=== PATIENT | female | born 1970 | race Caucasian/White ===

== ENCOUNTER 2018-12-17 14:30 | Outpatient (RCR) | payer OTHER, SELFPAY ==
--- NOTE | 2019-01-06 15:02 | PCPTNOTE ---
01/06/19 pt did not show for apt. Contacted patient and she is having a bad day and sadi for 1x next week. VETO
== END 2019-01-20 23:59 | disposition home or self-care (01) ==
LOC: CHSPT 14:30
PROVIDERS: Visit Provider Internal Medicine
DX: M25.561 Pain in right knee (principal); R26.9 Unspecified abnormalities of gait and mobility
CPT/HCPCS: 97014; 97110; 97530; G0283

== ENCOUNTER 2019-06-06 10:45 | Outpatient (CLI) | payer OTHER, SELFPAY ==
--- NOTE | ~2019-06-06 | MR_ITS ---
EXAMINATION: MR brain/brain stem wo/w con DATE: 06/06/2019 12:28 INDICATION: Seizures. TECHNIQUE: Magnetic resonance imaging (MRI) of the brain and brainstem was performed without and with 10 mL MultiHance intravenous contrast. Sequences included sagittal and axial T1-weighted FSE, axial diffusion-weighted FS EPI, axial T2*-weighted GRE, axial T2-weighted FLAIR Propeller, axial T2-weight ed Propeller, coronal T2-weighted FLAIR, and coronal T1-weighted 3D FSPGR. Postcontrast axial and cor onal T1-weighted FSE was obtained. Apparent diffusion coefficient (ADC) maps were created. COMPARISON: None. FINDINGS: There is no intracranial hemorrhage, acute infarction, or abnormal intracranial mass lesion . There is a small focus of increased T2-weighted signal intensity in the right frontal lobe deep whi te matter, which is normal as an isolated finding. The hippocampi are normal and symmetric. The ventr icles are normal in size. The orbits are normal. There is mild mucosal thickening in the ethmoid sinu ses. The mastoid air cells are normal. IMPRESSION: 1. Normal brain. Reviewed, dictated and finalized at location A. IMPRESSION: 1. Normal brain.
[2019-06-06 11:19] LABS: Estimated Glomerular Filt Rate > 60
== END 2019-06-06 10:46 | disposition home or self-care (01) ==
LOC: CHSIMG 10:48
PROVIDERS: PCP Internal Medicine; Visit Provider Internal Medicine
DX: R56.9 Unspecified convulsions (principal)
CPT/HCPCS: 70553; A9577

== ENCOUNTER 2019-06-18 13:04 | Outpatient (CLI) | payer OTHER, SELFPAY ==
--- NOTE | 2019-06-18 13:30 | NEURO_ITS ---
TEST: ELECTROENCEPHALOGRAM DIAGNOSIS: Seizures PATIENT NUMBER: [id number] EEG NUMBER: [id number] RECORDING DATE: 06/18/19 CONDITION OF RECORDING: Awake and drowsy EEG DESCRIPTION: Basic resting occipital frequency consists of moderate amount of fairly well organized low voltage 8-10hz alpha mixed with low voltage 15-18hz beta. During drowsiness low voltage beta activity is seen diffusely mixed with waxing and waning posterior alpha rhythms and intermittent 6-7hz theta activity. Photic stimulation produced normal drive. Nonparoxysmal. Nonfocal. Nonlateralizing. IMPRESSION: No significant abnormalities noted. [facility]
== END 2019-06-18 13:05 | disposition home or self-care (01) ==
LOC: ANHNEURO 13:08
DX: R56.9 Unspecified convulsions (principal)
CPT/HCPCS: 95816

== ENCOUNTER 2021-02-06 15:13 | Outpatient (NON) | payer OTHER, SELFPAY | END 2021-02-06 15:14 | disposition home or self-care (01) | LOC: CHSLAB 15:15 | DX: R60.9 Edema, unspecified (principal) | CPT/HCPCS: 99199 ==

== ENCOUNTER 2021-02-07 12:10 | Outpatient (CLI) | payer OTHER, SELFPAY ==
--- NOTE | ~2021-02-07 | US_ITS ---
EXAMINATION: US venous doppler LE DATE: 02/07/2021 13:22 INDICATION: Lower limb swelling. Nonhealing wound. TECHNIQUE: Grayscale ultrasound images without and with compression and Doppler ultrasound images of the bilateral lower extremity veins were obtained. COMPARISON: None. FINDINGS: Right lower extremity: The visualized portions of right common femoral vein, profunda (deep) femoral vein, femoral vein, pop liteal vein, posterior tibial veins, peroneal veins, gastrocnemius vein and greater saphenous vein ou tflow are patent. Right standing venous mapping: reflux seconds duration; vein size. Greater saphenous origin: 0 seconds; 8.2 mm. Greater saphenous above knee :-- 0 seconds; 4.5 mm. Greater saphenous below knee:--- 0 seconds; 3.1 mm. Greater saphenous mid calf:-------- 0 seconds; 2.3 mm. Greater saphenous distal calf:------ 0 seconds; 1.9 mm. Lesser saphenous proximally:------ 0 seconds; 3.6 mm. Lesser saphenous distally: 0 seconds; 3.1 mm. Lesser saphenous distally: 0 seconds; 2.3 mm. Left lower extremity: The visualized portions of left common femoral vein, profunda femoral vein, femoral vein, popliteal v ein, posterior tibial veins and greater saphenous vein outflow are patent. Left standing venous mapping: reflux seconds duration; vein size. Greater saphenous origin: 0 seconds; 8.0 mm. Greater saphenous mid thigh:------ 0 seconds; 6.0 mm. Greater saphenous above knee :--0 seconds; 3.7 mm. Greater saphenous below knee:--- 0 seconds; 3.4 mm. Greater saphenous mid calf:-------- 0 seconds; 4.0 mm. Greater saphenous distal calf:------ 0 seconds; 2.7 mm. Lesser saphenous vein is not visualized. IMPRESSION: 1. No deep venous thrombosis in either lower limb. 2. No venous reflux in either lower limb. Reviewed, dictated and finalized at location A. UCTION QUALITY MANAGER
--- NOTE | ~2021-02-07 | US_ITS ---
EXAMINATION: US arterial ankle brachial ind DATE: 02/07/2021 13:22 INDICATION: Lower limb edema and nonhealing wound TECHNIQUE: Segmental pressures and plethysmographic and Doppler waveforms of the brachial and lower e xtremity arteries were obtained. COMPARISON: 07/31/2018 FINDINGS: Right and left brachial artery pressures of 115 mm Hg and 133 mm Hg, respectively, are concordant (no rmal difference <= 30 mmHg). The right ankle-brachial index (BULMARO) is 1.32 (normal >= 0.9-1.0). The right great toe-brachial index (TBI) is 0.77 (normal >= 0.65). Arterial Doppler waveforms are triphasic at the right posterior tibia l artery and biphasic at the dorsalis pedis artery, both with brisk systolic upstrokes. The left BULMARO is 1.39. The left TBI is 0.56. Arterial Doppler waveforms are triphasic at the left post erior tibial artery and biphasic at the left dorsalis pedis artery, both with brisk systolic upstroke s. IMPRESSION: 1. 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 2. No significant arterial occlusive disease to the right lower limb with normal right BULMARO and TBI. Reviewed, dictated and finalized at location A. F LABOURER IMPRESSION: 1. 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 2. No significant arterial occlusive disease to the right lower limb with mandeep l right BULMARO and TBI.
== END 2021-02-07 12:11 | disposition home or self-care (01) ==
LOC: CHSIMG 12:12
PROVIDERS: PCP Nurse Practitioner Family
DX: R60.0 Localized edema (principal)
CPT/HCPCS: 93922; 93970

== ENCOUNTER 2021-02-15 12:11 | Outpatient (CLI) | payer OTHER, SELFPAY ==
--- NOTE | ~2021-02-15 | XR_ITS ---
XR lumbar spine 2-3V DATE: 02/15/2021 12:31 INDICATION: Lower back pain TECHNIQUE: AP, lateral and coned lateral lumbosacral views COMPARISON: 11/23/2013 lumbar spine 11/25/2013 MRI lumbar spine FINDINGS: There is osteopenia. There is mild dextro scoliosis of the lumbar spine. There is degenerative spurring of the thoracic and particularly lumbar spine. There is ankylosis at L5-S1. Moderately severe degenerative disc disease at L1-2, L3-4 and L4-5. Mild degenerative disease at L2-3 . No fracture or spondylolisthesis or bone destruction. The lumbar pedicles are intact. The sacral iliac joints appear normal. Severe deformity at the partially included left hip. IMPRESSION: Fusion at L5-S1 disc space Multilevel degenerative disc disease of the lumbar spine Osteopenia Mild dextro scoliosis of the lumbar spine Severe deformity at the left hip Reviewed, dictated and finalized at location A. TH SAFETY SPECIALIST
== END 2021-02-15 12:12 | disposition home or self-care (01) ==
LOC: CHSIMG 12:11
PROVIDERS: PCP Nurse Practitioner Family; Visit Provider Nurse Practitioner Adult Health
DX: M54.16 Radiculopathy, lumbar region (principal)
CPT/HCPCS: 72100

== ENCOUNTER 2021-02-20 12:46 | Outpatient (RCR) | payer OTHER, SELFPAY ==
--- NOTE | 2021-02-20 14:04 | PTOPEVAL ---
Thank you for referring Gricel Reddy to [facility].? The patient is scheduled to be seen for therapy? ____x/week for ___ weeks. Please review, sign, date and return this plan of care CAPO. I agree with and certify that the following plan of care is medically necessary. Referring Physician Date Admitting Provider: Attending Provider: Kaylene Brown, JEWELRY DESIGNER Referring Provider: *PT Outpatient Evaluation Start: 02/20/21 12:55 Freq: Status: Active Protocol: Document 02/20/21 13:01 ACR (Rec: 02/20/21 14:03 ACR [id number]) Therapy Assessment Status Assessment Status Assessment Status Evaluation Evaluation Information Problem Diagnosis lumbar radiculopathy Onset 02/15/21 Subjective Information Patient states that she has Query Text:As Reported By Patient/ chronic back pain and deals Family with it everyday. Patient states that her sleep is affected due to the pain. Patient states that everyday tasks are difficult for her such as transfers, doing dishes, or any other mineral engineer. Patient denies radicular symptoms. Patient lives alone and has a computer graphic artist comes in for 14 hours a week. Patient states that she walks around her home with a standard walker and reports no difficulty. Prior Level of Function Activity Level (Last 3 Months) Occupation uneployed Hand Dominance Right Activity of Daily Living Ability Needs Some Help Indoor/Home Mobility Independent Community Mobility Dependent Stairs Ability Unknown Functional Cognition (Planning, Shopping Independent , Taking Medications) Cooking No Cleaning Yes Laundry No Shopping No Driving No Pain Assessment Timing of Pain Assessment Timing of Pain Assessment Assessment Pain Scale Pain Scale Used Numeric (1 - 10) Self Report Pain Assessment Right Back Reported Pain Level 7 Greatest Pain Intensity 8 Pain Score Pain Score 7: Self Report Additional Pain Score Comments I can't describe it, it is just a pain. Interventions Used Interventions Used By Clinicians Activity or ADL's,Exercise Lower Extremity Muscle Strength Testing
--- NOTE | 2021-06-15 14:19 | PCPTNOTE ---
patient has began a new plan of care under a new account and order. JTF
== END 2021-03-09 23:59 | disposition home or self-care (01) ==
LOC: CHSPT 12:46
PROVIDERS: PCP Nurse Practitioner Adult Health; Visit Provider Nurse Practitioner Adult Health
DX: M54.16 Radiculopathy, lumbar region (principal)
CPT/HCPCS: 97014; 97110; 97161; G0283

== ENCOUNTER 2021-03-06 10:25 | Outpatient (RCR) | payer OTHER, SELFPAY | END 2021-03-08 23:59 | disposition home or self-care (01) | LOC: CHSWOUND 10:25 | PROVIDERS: PCP Nurse Practitioner Family | DX: L97.222 Non-pressure chronic ulcer of left calf with fat layer exposed (principal); I89.0 Lymphedema, not elsewhere classified; I10 Essential (primary) hypertension; G62.9 Polyneuropathy, unspecified; D64.9 Anemia, unspecified; E78.00 Pure hypercholesterolemia, unspecified; E03.9 Hypothyroidism, unspecified; E78.5 Hyperlipidemia, unspecified; B37.2 Candidiasis of skin and nail; F17.210 Nicotine dependence, cigarettes, uncomplicated; G47.30 Sleep apnea, unspecified; Z96.649 Presence of unspecified artificial hip joint | CPT/HCPCS: 11042; 11045; 87070; 87147; 87186; 87205; 97597; 97598; 97602; 99205; 99214; G0463 ==

== ENCOUNTER 2021-04-10 09:33 | Outpatient (RCR) | payer OTHER, SELFPAY | END 2021-04-12 23:59 | disposition home or self-care (01) | LOC: CHSWOUND 09:33 | PROVIDERS: PCP Nurse Practitioner Adult Health; Visit Provider Nurse Practitioner Family | DX: L97.222 Non-pressure chronic ulcer of left calf with fat layer exposed (principal); I89.0 Lymphedema, not elsewhere classified; I10 Essential (primary) hypertension; D64.9 Anemia, unspecified; E66.9 Obesity, unspecified; E78.00 Pure hypercholesterolemia, unspecified; E03.9 Hypothyroidism, unspecified; G90.09 Other idiopathic peripheral autonomic neuropathy; B37.2 Candidiasis of skin and nail | CPT/HCPCS: 11042; 11045; 99213; G0463 ==

== ENCOUNTER 2021-05-15 09:58 | Outpatient (RCR) | payer OTHER, SELFPAY | END 2021-05-17 23:59 | disposition home or self-care (01) | LOC: CHSWOUND 09:58 | PROVIDERS: PCP Nurse Practitioner Family; Visit Provider Nurse Practitioner Family | DX: L97.222 Non-pressure chronic ulcer of left calf with fat layer exposed (principal); I89.0 Lymphedema, not elsewhere classified; I10 Essential (primary) hypertension; G90.09 Other idiopathic peripheral autonomic neuropathy; D64.9 Anemia, unspecified; E78.00 Pure hypercholesterolemia, unspecified; E03.9 Hypothyroidism, unspecified; B37.2 Candidiasis of skin and nail | CPT/HCPCS: 11042; 11045; 29580; 87070; 87147; 87186; 87205; 99213; G0463 ==

== ENCOUNTER 2021-05-21 17:14 | Emergency (ER) | payer OTHER, SELFPAY ==
--- NOTE | ~2021-05-21 | CT_ITS ---
EXAMINATION: CT lumbar spine wo con DATE: 05/21/2021 18:32 INDICATION: Low back pain and pressure for several days. History of spinal surgery. TECHNIQUE: Computed tomography (CT) of the thoracic spine was performed without intravenous contrast. Automated exposure control and iterative reconstruction technique were employed. The dose-length pro duct was 1592.63 mGy-cm. COMPARISON: None FINDINGS: 5 nonrib-bearing lumbar-type vertebral bodies. L5-S1 interbody and facet fusion. Postsurgical change in the left iliac bone, extending into the left iliacus psoas muscles. Severe right neural foraminal narrowing at L5-S1. Multilevel moderate degenerative disc disease and facet arthropathy in the remain evelin of the lumbar spine. No fracture or traumatic malalignment of the lumbar spine. No severe central canal or neural foraminal narrowing. IMPRESSION: 1. No acute fracture or traumatic malalignment in the lumbar spine. Reviewed, dictated and finalized at location K.
[2021-05-21 17:15] VITALS: BP 120/58; PULSE 100; RESP 16; TEMP 36.4; O2SAT 97
--- NOTE | 2021-05-21 17:29 | ED.BACK ---
HPI - Back Pain/Injury General Chief Complaint: Back Pain/Injury Stated Complaint: back pain, leg edema Time Seen by Provider: 05/21/21 17:31 Source: patient, EMS and RN notes reviewed Mode of arrival: EMS Limitations: physical limitation History of Present Illness MD elicited complaint: back pain Pertinent past history: prior back pain Onset (ago): day(s) (1) Timing: constant Severity: severe Similar Symptoms Previously: Yes Related Data Home Medications Medication Instructions Recorded Confirmed atorvastatin 20 mg PO DAILY 01/25/19 05/21/21 furosemide 20 mg PO DAILY 01/25/19 05/21/21 gabapentin 300 mg PO TID 01/25/19 05/21/21 ibuprofen 800 mg PO PRN 01/25/19 05/21/21 levothyroxine 50 mcg PO DAILY 01/25/19 05/21/21 cetirizine 10 mg capsule 10 mg PO DAILY 03/30/19 05/21/21 compression socks, medium #1 each 03/30/19 05/21/21 ferrous sulfate 325 mg (65 mg 325 mg PO DAILY 03/30/19 05/21/21 iron) tablet fluticasone propionate 50 1 spray NASAL DAILY 03/30/19 05/21/21 mcg/actuation nasal spray,suspension potassium chloride 10 mEq 10 meq PO DAILY 03/30/19 05/21/21 capsule,extended release psyllium husk 3.4 gram/5.4 gram 3.4 tbsp PO DAILY 03/30/19 05/21/21 oral powder trazodone 100 mg tablet 50 mg PO DAILY tablet 03/30/19 05/21/21 aripiprazole 15 mg tablet 15 mg PO DAILY 11/09/19 05/21/21 sertraline 100 mg tablet 150 mg PO DAILY tablet 11/09/19 05/21/21 atenolol 25 mg tablet 50 mg PO DAILY tablet 08/30/20 05/21/21 Allergies Allergy/AdvReac Type Severity Reaction Status Date / Time No Known Allergies Allergy Verified 05/21/21 17:25 Review of Systems Review of Systems: All systems reviewed & are unremarkable except as noted in HPI and below PMFSH Past Medical History Medical History Bipolar disease, chronic Chronic back pain Chronic cellulitis Diastolic dysfunction Dyslipidemia Edema of both legs Essential hypertension Hypertension Hypothyroidism Morbid obesity with BMI of 45.0-49.9, adult MRSA infection Obesity Smoking Surgical History Surgical History History of left hip replacement Pelvis fracture Family History Family History Father Hypertension Social History Social History Smoking status: Current every day smoker Alcohol intake: current Substance use: former Substance use type: marijuana Exam Const: General: healthy appearing, no acute distress and alert Nutritional Appearance: obese morbidly obese Orientation/consciousness: patient oriented x3 HENMT: Head: normal to inspection Ears: external ears normal Eyes: Conjunctivae: conjunctivae normal Pupils: Equal, round and reactive pupils present EOM: EOMs intact bilaterally Neck: Neck: normal visual inspection Resp: Effort & Inspection: normal respiratory effort Auscultation: clear to auscultation bilaterally Cardio: Rate: regular rate Rhythm: regular rhythm GI: GI Palp: Yes Soft to palpation, No Tenderness to palpation present (GI) and No Guarding due to palpation present (GI) Auscultation: normal bowel sounds Skin: General skin exam: normal color and other ( left leg is wrapped in dressings) Neuro: General: patient oriented x3, moves all extremities, no focal motor deficits and CN's II-XI intact bilaterally Speech: normal speech Psych: Appearance: grossly normal and well kempt Mental Status: mental status grossly normal Thought content: Yes Normal thought content present Course Course Emergency Course: Patient was improved and could stand and transfer better following Toradol. Vital Signs Vital signs: Vital Signs Temperature 36.4 C 05/21/21 17:15 Pulse Rate 100 05/21/21 17:15 Respiratory Rate 16 05/21/21 17:15 Blood Pressure 120/58 L 05/21/21 17:15 Pulse Oximetry 97 05/21/21 17:15 Temperature 36.3 C L 05/21/21 1
[2021-05-21] MEDS: KETOROLAC 30 MG/ML VIAL (*BKC) IV PUSH (18:13)
[2021-05-21 19:34] VITALS: BP 97/43; PULSE 98; RESP 20; TEMP 36.3; O2SAT 95
== END 2021-05-21 20:05 | disposition home or self-care (01) ==
PROVIDERS: Emergency Provider Emergency Medicine; PCP Nurse Practitioner Family
DX: M51.36 Other intervertebral disc degeneration, lumbar region (principal)
CPT/HCPCS: 72131; 96374; 99284; J1885

== ENCOUNTER 2021-06-13 14:37 | Outpatient (RCR) | payer OTHER, SELFPAY ==
--- NOTE | 2021-06-13 15:56 | PTOPEVAL ---
Thank you for referring Gricel Reddy to [facility].? The patient is scheduled to be seen for therapy? ____x/week for ___ weeks. Please review, sign, date and return this plan of care CAPO. I agree with and certify that the following plan of care is medically necessary. Referring Physician Date Admitting Provider: Attending Provider: Sulma Varghese, CHRISTIAN Referring Provider: *PT Outpatient Evaluation Start: 06/13/21 15:04 Freq: Status: Active Protocol: Document 06/13/21 15:05 [facility] (Rec: 06/13/21 15:55 [facility] [id number]) Therapy Assessment Status Assessment Status Assessment Status Evaluation Outpatient Past Medical History Cardiovascular History Hx Hypertension Yes Respiratory History Hx Sleep Apnea Yes Genitourinary History Hx Other Genitourinary Disorders Yes: incontinence Musculoskeletal History Hx Back Injury Yes Hx Back Pain Yes Endocrine History Hx Hypothyroidism Yes Integumentary History Hx Cellulitis Yes: staph Evaluation Information Problem Diagnosis lumbago, lumbar radiculopathy Onset 06/07/21 Additional Evaluation Detail LEFS = 60% functionally declined Subjective Information patient reports she is coming Query Text:As Reported By Patient/ to therapy for chronic back Family pain. she has been in therapy for her back pain in the past. she reports her back is getting so bad she is unable to do anything for herself at home. she was in the ER a few weeks ago. she reports they did a CT that shows DDD. she reports she is on a new anti- inflamatory. she reports she has increased pain in the back when moving and doing exercises. she reports the therapy does help. she reports her typical day involves getting up, making and eating breakfast, talking on the phone, and sitting mostly. she reports the lift chair causes her less back pain than the wheelchair. patient reports she walks the length of her trailer several times throughout the day. she reports
--- NOTE | 2021-10-09 16:37 | PCPTNOTE ---
Ms. Reddy attended a total of 3 treatment sessions from 06/13/21 to 06/23/21. She has failed to return to the clinic and will be discharged from our care at this time. Refer to the pt. last daily note for discharge status.
== END 2021-06-23 23:59 | disposition home or self-care (01) ==
LOC: CHSPT 14:37
PROVIDERS: PCP Physician Assistant; Visit Provider Physician Assistant
DX: M54.10 Radiculopathy, site unspecified (principal)
CPT/HCPCS: 97014; 97110; 97162; G0283

== ENCOUNTER 2021-06-19 10:22 | Outpatient (RCR) | payer OTHER, SELFPAY | END 2021-06-21 23:59 | disposition home or self-care (01) | LOC: CHSWOUND 10:22 | PROVIDERS: PCP Nurse Practitioner Family; Visit Provider Nurse Practitioner Family | DX: L97.222 Non-pressure chronic ulcer of left calf with fat layer exposed (principal); I89.0 Lymphedema, not elsewhere classified; I10 Essential (primary) hypertension; G90.09 Other idiopathic peripheral autonomic neuropathy; D64.9 Anemia, unspecified; E78.00 Pure hypercholesterolemia, unspecified; E03.9 Hypothyroidism, unspecified; B37.2 Candidiasis of skin and nail | CPT/HCPCS: 11042; 11045; 99213; G0463 ==

== ENCOUNTER 2021-07-11 12:57 | Outpatient (CLI) | payer OTHER, SELFPAY ==
--- NOTE | ~2021-07-11 | XR_ITS ---
EXAMINATION: XR knee RT 2V DATE: 07/11/2021 13:19 INDICATION: Chronic right knee pain TECHNIQUE: AP and lateral views of the right knee were obtained. COMPARISON: 05/10/1989 FINDINGS: Alignment is normal. No fracture. Small marginal osteophytes at all 3 compartments of the knee. Persi stent mild joint space narrowing in the lateral compartment. Soft tissues are unremarkable with no kn ee joint effusion. IMPRESSION: 1. Mild lateral compartment predominant tricompartmental osteoarthritis of the right knee. Reviewed, dictated and finalized at location B.
== END 2021-07-11 12:58 | disposition home or self-care (01) ==
LOC: CHSIMG 12:59
PROVIDERS: PCP Nurse Practitioner Family; Visit Provider Nurse Practitioner Adult Health
DX: M25.561 Pain in right knee (principal)
CPT/HCPCS: 73560

== ENCOUNTER 2021-07-18 15:45 | Emergency (ER) | payer OTHER, SELFPAY ==
[2021-07-18 15:50] VITALS: BP 141/88; PULSE 100; RESP 16; TEMP 37.2; O2SAT 97
--- NOTE | 2021-07-18 16:31 | ED.WOUNDLAC ---
HPI - Wound/Laceration General Chief Complaint: Wound/Laceration Stated Complaint: bad color to leg, bad odor to leg Time Seen by Provider: 07/18/21 15:47 Source: patient and RN notes reviewed Mode of arrival: ambulatory Limitations: no limitations History of Present Illness HPI narrative: left lateral leg redness, swelling with mild serous drainage Onset (ago): week(s) (1) Extremity Location: Left: lower leg Place: home Patient tetanus UTD: Yes Associated symptoms: pain Treatments prior to arrival: bandage Related Data Home Medications Medication Instructions Recorded Confirmed atorvastatin 20 mg tablet 20 mg PO DAILY 01/25/19 07/18/21 furosemide 20 mg tablet 20 mg PO DAILY 01/25/19 07/18/21 ibuprofen 800 mg tablet 800 mg PO PRN 01/25/19 07/18/21 levothyroxine 50 mcg tablet 50 mcg PO DAILY 01/25/19 07/18/21 cetirizine 10 mg capsule (Zyrtec) 10 mg PO DAILY 03/30/19 07/18/21 compression socks, medium (Futuro #1 ea 03/30/19 07/18/21 Restoring Medium) ferrous sulfate 325 mg (65 mg 325 mg PO DAILY 03/30/19 07/18/21 iron) tablet potassium chloride 10 mEq 10 meq PO DAILY 03/30/19 07/18/21 capsule,extended release psyllium husk 3.4 gram/5.4 gram 3.4 tbsp PO DAILY 03/30/19 07/18/21 oral powder (Metamucil) trazodone 100 mg tablet 50 mg PO DAILY 03/30/19 07/18/21 aripiprazole 15 mg tablet (Abilify) 15 mg PO DAILY 11/09/19 07/18/21 atenolol 25 mg tablet 50 mg PO DAILY 08/30/20 07/18/21 Allergies Allergy/AdvReac Type Severity Reaction Status Date / Time Bactrim Allergy Unknown Rash itch Uncoded 08/10/21 16:21 Review of Systems Review of Systems: All systems reviewed & are unremarkable except as noted in HPI and below Constitutional: Constitutional: Reports no additional constitutional complaints Eyes: Eyes: Reports no additional eye complaints ENT: Reports system reviewed and no additional complaints, except as documented Cardiovascular: Cardiovascular: Reports no additional cardiovascular complaints Respiratory: Respiratory: Reports no additional respiratory complaints Gastrointestinal: Gastrointestinal: Reports no additional gastrointestinal complaints Genitourinary: Genitourinary: Reports no additional female genitourinary complaints Musculoskeletal: Musculoskeletal: Reports no additional musculoskeletal complaints Integumentary/Breasts: Skin/Breast: Reports system reviewed and no additional complaints, except as docu Neurologic: Reports system reviewed and no additional complaints, except as documented Psychiatric: Psychiatric: Reports no additional psychiatric complaints Endocrine: Endocrine: Reports no additional endocrine complaints Hematologic/Lymphatic: Hematologic/Lymphatic: Reports no additional hematologic/lymphatic complaints Allergic/Immunologic: Allergic/Immunologic: Reports no additional allergic/immunologic complaints PMFSH Past Medical History Medical History Bipolar disease, chronic Chronic back pain Chronic cellulitis Diastolic dysfunction Dyslipidemia Edema of both legs Essential hypertension Hypertension Hypothyroidism Morbid obesity with BMI of 45.0-49.9, adult MRSA infection Obesity Smoking Surgical History Surgical History History of left hip replacement Pelvis fracture Family History Family History Father Hypertension Social History Social History Smoking status: Current every day smoker Alcohol intake: current Substance use: former Substance use type: marijuana Exam Const: General: healthy appearing and no acute distress Nutritional Appearance: well nourished Orientation/consciousness: patient oriented x3 Limitations: no limitations HENMT: Head: normal to inspection Ears: external ears normal, TM's normal bilaterally and EAC's normal General nose exam: Normal external
[2021-07-18] MEDS: ACETAMINOPHEN 325 MG TABLET 650 MG PO (16:53)
--- NOTE | 2021-07-18 17:05 | PC.NURSE ---
WOUND HAS BEEN CLEANED AND DRESSED. MEDICATIONS ADMINISTERED ORDERED. PT IS AWARE OF PLAN OF CARE, AWAITING ERP DECISION. WILL CONTINUE TO MONITOR.
[2021-07-18 17:40] VITALS: BP 138/76; PULSE 98; RESP 16; TEMP 37.2; O2SAT 99
== END 2021-07-18 17:40 | disposition home or self-care (01) ==
PROVIDERS: Emergency Provider Emergency Medicine; PCP Nurse Practitioner Family
DX: R60.9 Edema, unspecified (principal); L03.116 Cellulitis of left lower limb
CPT/HCPCS: 96372; 99283; A9270; J0696

== ENCOUNTER 2021-09-13 12:01 | Outpatient (CLI) | payer OTHER, SELFPAY ==
--- NOTE | ~2021-09-13 | US_ITS ---
EXAMINATION: US arterial duplex LE DATE: 09/13/2021 13:19 INDICATION: Intermittent claudication. Atherosclerosis of [place] arteries of extremities. TECHNIQUE: Multiple grayscale and Doppler ultrasound images of the left lower limb arteries were obta ined. COMPARISON: Arterial Doppler and segmental pressures 02/07/2021 FINDINGS: Peak systolic velocities are 83 cm/s in left common femoral artery, 66 cm/s in profunda fem justin artery, 84 cm/s in proximal superficial femoral artery, 78 cm/s in mid superficial femoral arter y, 93 cm/s in distal superficial femoral artery, 64 cm/s in popliteal artery, 42 cm/s in distal poste rior tibial artery, and 14 cm/s in dorsalis pedis. Bandages obscure a portion of the lower leg. IMPRESSION: 1. No significant arterial occlusive disease. Reviewed, dictated and finalized at location A.
== END 2021-09-13 12:02 | disposition home or self-care (01) ==
PROVIDERS: PCP Nurse Practitioner Family
DX: I70.212 Atherosclerosis of native arteries of extremities with intermittent claudication, left leg (principal)
CPT/HCPCS: 93926

== ENCOUNTER 2021-09-18 07:22 | Outpatient (RCR) | payer OTHER, SELFPAY | END 2021-09-20 23:59 | disposition home or self-care (01) | LOC: CHSWOUND 07:22 | PROVIDERS: PCP Nurse Practitioner Family | DX: I87.332 Chronic venous hypertension (idiopathic) with ulcer and inflammation of left lower extremity (principal); L97.822 Non-pressure chronic ulcer of other part of left lower leg with fat layer exposed; I89.0 Lymphedema, not elsewhere classified; I70.212 Atherosclerosis of native arteries of extremities with intermittent claudication, left leg; I10 Essential (primary) hypertension; E78.5 Hyperlipidemia, unspecified; M54.9 Dorsalgia, unspecified; G89.29 Other chronic pain; G62.9 Polyneuropathy, unspecified; F17.210 Nicotine dependence, cigarettes, uncomplicated; Z96.642 Presence of left artificial hip joint | CPT/HCPCS: 11042; 11045; 99214; G0463 ==

== ENCOUNTER 2021-10-23 08:13 | Outpatient (RCR) | payer OTHER, SELFPAY | END 2021-10-25 23:59 | disposition home or self-care (01) | LOC: CHSWOUND 08:13 | PROVIDERS: PCP Nurse Practitioner Family | DX: I87.332 Chronic venous hypertension (idiopathic) with ulcer and inflammation of left lower extremity (principal); L97.822 Non-pressure chronic ulcer of other part of left lower leg with fat layer exposed; I89.0 Lymphedema, not elsewhere classified; I10 Essential (primary) hypertension; F17.290 Nicotine dependence, other tobacco product, uncomplicated; E78.00 Pure hypercholesterolemia, unspecified; I70.212 Atherosclerosis of native arteries of extremities with intermittent claudication, left leg | CPT/HCPCS: 11042; 11045; 97602 ==

== ENCOUNTER 2021-11-20 08:39 | Outpatient (CLI) | payer OTHER, SELFPAY ==
[2021-11-20 08:50] LABS: Hematocrit 35.8 % (35.0-49.0); Hemoglobin 10.8 g/dL (12.0-15.0); Mean Corpuscular HGB Conc 30.2 g/dL (32.0-36.0); Mean Corpuscular Hemoglobin 24.5 pg (27.0-31.0); Mean Corpuscular Volume 81.4 fL (78.0-102.0); Mean Platelet Volume 11.1 fl (9.2-11.8); Platelet Count Result 242 K/mm3 (150-420); Red Cell Distribution Width 18.7 % (11.6-14.4); White Blood Count 8.8 K/mm3 (4.8-10.8)
[2021-11-20 09:19] LABS: Alanine Aminotransferase 19 U/L (14-59); Albumin Level 3.3 g/dL (3.4-5.0); Alkaline Phosphatase 109 U/L (46-116); Anion Gap 6 mmol/L (8-16); Aspartate Amino Transferase 10 U/L (15-37); Bilirubin,Total 0.3 mg/dL (0.00-1.00); Blood Urea Nitrogen 23 mg/dL (7-18); Calcium 8.5 mg/dL (8.5-10.1); Carbon Dioxide 30 mmol/L (21-32); Chloride 106 mmol/L (98-108); Cholesterol 128 mg/dL (0-200); Estimated Glomerular Filt Rate > 60; Glucose 92 mg/dL (70-99); HDL Direct 57 mg/dL (40-60); LDL Cholesterol Calculated 54 mg/dL (<130); Osmolality Calculated 297 mOsm/kg (285-295); Potassium 4.5 mmol/L (3.5-5.1); Sodium 142 mmol/L (136-145); Total Protein 7.2 g/dL (6.4-8.2); Triglycerides 87 mg/dL (0-150)
== END 2021-11-20 08:40 | disposition home or self-care (01) ==
LOC: CHSLAB 08:40
PROVIDERS: PCP Family Medicine; Visit Provider Family Medicine
DX: E78.5 Hyperlipidemia, unspecified (principal); I10 Essential (primary) hypertension; E03.9 Hypothyroidism, unspecified; E11.9 Type 2 diabetes mellitus without complications
CPT/HCPCS: 36415; 80053; 80061; 84443; 85027; 97602

== ENCOUNTER 2021-11-27 08:05 | Outpatient (RCR) | payer OTHER, SELFPAY | END 2021-11-29 23:59 | disposition home or self-care (01) | LOC: CHSWOUND 08:05 | PROVIDERS: PCP Nurse Practitioner Family; Visit Provider Nurse Practitioner Acute Care | DX: I87.332 Chronic venous hypertension (idiopathic) with ulcer and inflammation of left lower extremity (principal); L97.822 Non-pressure chronic ulcer of other part of left lower leg with fat layer exposed; I70.212 Atherosclerosis of native arteries of extremities with intermittent claudication, left leg; I89.0 Lymphedema, not elsewhere classified; I10 Essential (primary) hypertension; F17.290 Nicotine dependence, other tobacco product, uncomplicated; E78.00 Pure hypercholesterolemia, unspecified; Z96.642 Presence of left artificial hip joint | CPT/HCPCS: 11042; 11045; 29581; 97602; 99213; G0463 ==

== ENCOUNTER 2022-01-01 07:57 | Outpatient (RCR) | payer OTHER, SELFPAY | END 2022-01-03 23:59 | disposition home or self-care (01) | LOC: CHSWOUND 07:57 | PROVIDERS: PCP Family Medicine; Visit Provider Nurse Practitioner Acute Care | DX: I87.332 Chronic venous hypertension (idiopathic) with ulcer and inflammation of left lower extremity (principal); L97.822 Non-pressure chronic ulcer of other part of left lower leg with fat layer exposed; I89.0 Lymphedema, not elsewhere classified; I10 Essential (primary) hypertension; I70.212 Atherosclerosis of native arteries of extremities with intermittent claudication, left leg; E78.00 Pure hypercholesterolemia, unspecified; M54.9 Dorsalgia, unspecified; G89.29 Other chronic pain; G47.30 Sleep apnea, unspecified; F17.290 Nicotine dependence, other tobacco product, uncomplicated; Z96.642 Presence of left artificial hip joint | CPT/HCPCS: 11042; 11045; 97602 ==

== ENCOUNTER 2022-01-29 08:09 | Outpatient (RCR) | payer OTHER, SELFPAY | END 2022-02-07 23:59 | disposition home or self-care (01) | LOC: CHSWOUND 08:09 | PROVIDERS: PCP Family Medicine; Visit Provider Nurse Practitioner Acute Care | DX: I87.332 Chronic venous hypertension (idiopathic) with ulcer and inflammation of left lower extremity (principal); L97.822 Non-pressure chronic ulcer of other part of left lower leg with fat layer exposed; I89.0 Lymphedema, not elsewhere classified; I10 Essential (primary) hypertension; I70.212 Atherosclerosis of native arteries of extremities with intermittent claudication, left leg; E78.00 Pure hypercholesterolemia, unspecified; F17.290 Nicotine dependence, other tobacco product, uncomplicated | CPT/HCPCS: 11042; 11045; 97602 ==

== ENCOUNTER 2022-02-01 09:50 | Outpatient (CLI) | payer OTHER, SELFPAY ==
--- NOTE | ~2022-02-01 | US_ITS ---
EXAMINATION: US venous doppler [facility] DATE: 02/01/2022 10:57 INDICATION: Left lower limb cellulitis with pain, erythema and swelling TECHNIQUE: Grayscale ultrasound images without and with compression and Doppler ultrasound images of the left lower extremity veins were obtained. COMPARISON: None. FINDINGS: The visualized portions of left common femoral vein, profunda (deep) femoral vein, femoral vein, popl iteal vein, posterior tibial veins, lesser saphenous vein and greater saphenous vein outflow are sharp nt. Mild left inguinal lymphadenopathy with largest lymph node measuring 1.4 cm maximal transaxial di mension which given the provided history of cellulitis are most likely reactive. IMPRESSION: 1. No deep venous thrombosis in the left lower limb. 2. Mild likely reactive left inguinal lymphadenopathy. Reviewed, dictated and finalized at location L. INSPECTOR
[2022-02-01 10:15] LABS: Hematocrit 36.8 % (35.0-49.0); Hemoglobin 11.4 g/dL (12.0-15.0); Mean Corpuscular Hemoglobin 25.3 pg (27.0-31.0); Mean Corpuscular Volume 81.6 fL (78.0-102.0); Mean Platelet Volume 10.6 fl (9.2-11.8); Platelet Count Result 279 K/mm3 (150-420); Red Blood Count 4.51 M/mm3 (4.20-5.40); Red Cell Distribution Width 15.1 % (11.6-14.4); White Blood Count 11.2 K/mm3 (4.8-10.8)
[2022-02-01 10:44] LABS: Alanine Aminotransferase 15 U/L (14-59); Albumin Level 3.5 g/dL (3.4-5.0); Alkaline Phosphatase 107 U/L (46-116); Anion Gap 8 mmol/L (8-16); Aspartate Amino Transferase 12 U/L (15-37); Bilirubin,Total 0.4 mg/dL (0.00-1.00); Blood Urea Nitrogen 23 mg/dL (7-18); Calcium 8.8 mg/dL (8.5-10.1); Carbon Dioxide 29 mmol/L (21-32); Chloride 103 mmol/L (98-108); Estimated Glomerular Filt Rate > 60; Glucose 93 mg/dL (70-99); Osmolality Calculated 293 mOsm/kg (285-295); Potassium 4.4 mmol/L (3.5-5.1); Sodium 140 mmol/L (136-145); Total Protein 7.4 g/dL (6.4-8.2)
== END 2022-02-01 09:51 | disposition home or self-care (01) ==
LOC: CHSLAB 09:51
PROVIDERS: PCP Family Medicine; Visit Provider Family Medicine
DX: R60.0 Localized edema (principal); R59.0 Localized enlarged lymph nodes
CPT/HCPCS: 36415; 80053; 85027; 93971

== ENCOUNTER 2022-02-05 12:28 | Emergency (ER) | payer OTHER, SELFPAY ==
[2022-02-05 12:30] VITALS: BP 121/74; PULSE 52; RESP 16; TEMP 36.6; O2SAT 99
[2022-02-05 12:45] VITALS: BP 121/74; PULSE 50; TEMP 36.6; O2SAT 99
--- NOTE | 2022-02-05 13:14 | ED.WOUNDLAC ---
HPI - Wound/Laceration General Stated Complaint: leg is darker Time Seen by Provider: 02/05/22 12:38 Source: patient and family Mode of arrival: ambulatory Limitations: no limitations History of Present Illness HPI narrative: patient has a chronic left leg wound that she is seeing wound care once the week to 2 weeks. She has home health care doctor house Two days a week. Normally she would be going to wound care today. Home healthcare thought her wound looked a little darker recommend she get checked in the emergency department for this. She was seen a week ago and started on cephalexin to take 3 times a day but patient has only taken 2 tablets since because it caused her diarrhea. She has not had any diarrhea for the past several days. Says she has not taken it because it is hard to clean out the diarrhea when she gets diarrhea and hard to take care of herself. Although she normally cleans herself after having a bowel movement. She denies any malaise fever nausea vomiting, or abdominal pain or shortness of breath or cough or any other symptoms. She denies any pain in her leg. Related Data Home Medications Medication Instructions Recorded Confirmed furosemide 20 mg tablet 20 mg PO DAILY 01/25/19 11/20/21 compression socks, medium (Futuro #1 ea 03/30/19 11/20/21 Restoring Medium) potassium chloride 10 mEq 10 meq PO DAILY 03/30/19 11/20/21 capsule,extended release psyllium husk 3.4 gram/5.4 gram 3.4 tbsp PO DAILY 03/30/19 11/20/21 oral powder (Metamucil) trazodone 100 mg tablet 50 mg PO DAILY 03/30/19 11/20/21 aripiprazole 15 mg tablet (Abilify) 15 mg PO DAILY 11/09/19 11/20/21 atenolol 25 mg tablet 50 mg PO DAILY 08/30/20 11/20/21 diclofenac sodium 75 mg 75 mg PO BID PRN 11/16/21 11/20/21 tablet,delayed release pregabalin 150 mg capsule (Lyrica) 150 mg PO BID 11/16/21 11/20/21 Allergies Allergy/AdvReac Type Severity Reaction Status Date / Time Bactrim Allergy Unknown Rash itch Uncoded 02/05/22 12:58 Review of Systems Review of Systems: All systems reviewed & are unremarkable except as noted in HPI and below Constitutional: Constitutional: Reports as per HPI ENT: Reports system reviewed and no additional complaints, except as documented and Denies nasal congestion Cardiovascular: Cardiovascular: Reports as per HPI, Reports no additional cardiovascular complaints and Denies chest pain Respiratory: Respiratory: Reports as per HPI, Denies cough, Denies pain with cough and Denies dyspnea Gastrointestinal: Gastrointestinal: Reports as per HPI and Reports no additional gastrointestinal complaints Genitourinary: Genitourinary: Reports no additional female genitourinary complaints Musculoskeletal: Musculoskeletal: Reports no additional musculoskeletal complaints and Reports as per HPI Integumentary/Breasts: Skin/Breast: Reports system reviewed and no additional complaints, except as docu and Reports as per HPI Neurologic: Reports system reviewed and no additional complaints, except as documented PMFSH Past Medical History Medical History Bipolar disease, chronic Chronic back pain Chronic cellulitis Diastolic dysfunction Dyslipidemia Edema of both legs Essential hypertension Hypertension Hypothyroidism Morbid obesity with BMI of 45.0-49.9, adult MRSA infection Obesity Smoking Surgical History Surgical History History of left hip replacement Pelvis fracture Family History Family History Father Hypertension Social History Social History Smoking status: Current every day smoker Alcohol intake: current Substance use: former Substance use type: marijuana Lack of Transportation: YES Lack of Food: Never True Current Housing: I Have Housing Concerned About Future Housing: No Difficulty Paying Gas/Electric [place]
--- NOTE | 2022-02-05 13:28 | PC.NURSE ---
WOUND WAS UNWRAPPED, ASSESSED BY ERP AND RN. WOUND CLEANED WITH SURECLENZ AND AQUALCEL, TELFA AND KURLEX DRESSING WAS APPLIED. PT TOLERATED WELL.
== END 2022-02-05 13:35 | disposition home or self-care (01) ==
PROVIDERS: Emergency Provider Emergency Medicine; PCP Family Medicine
DX: L97.929 Non-pressure chronic ulcer of unspecified part of left lower leg with unspecified severity (principal); R19.7 Diarrhea, unspecified; E03.9 Hypothyroidism, unspecified; E78.5 Hyperlipidemia, unspecified; I10 Essential (primary) hypertension; F17.200 Nicotine dependence, unspecified, uncomplicated
CPT/HCPCS: 99282

== ENCOUNTER 2022-02-16 11:18 | Outpatient (CLI) | payer OTHER, SELFPAY ==
[2022-02-16 12:38] LABS: Cholesterol 139 mg/dL (0-200); HDL Direct 51 mg/dL (40-60); LDL Cholesterol Calculated 64 mg/dL (<130); Triglycerides 119 mg/dL (0-150)
[2022-02-16 12:43] LABS: Thyroid Stimulating Hormone Reflex 0.95 u/IU/mL (0.36-3.74)
== END 2022-02-16 11:19 | disposition home or self-care (01) ==
LOC: CHSLAB 11:20
PROVIDERS: PCP Family Medicine; Visit Provider Family Medicine
DX: E11.9 Type 2 diabetes mellitus without complications (principal); I10 Essential (primary) hypertension
CPT/HCPCS: 36415; 80061; 84443

== ENCOUNTER 2022-04-09 14:18 | Outpatient (CLI) | payer OTHER, SELFPAY ==
--- NOTE | 2022-04-09 14:25 | ECHO_ITS ---
Patient Info Name: Gricel Reddy Age: 51 years : 1970 Gender: Female Ht: 66 in Wt: 300 lbs BSA: 2.60 m2 HR: 87 bpm BP: 145 / 85 mmHg Heart Rhythm: Sinus Rhythm Technical Quality: Fair Exam Date: 04/09/2022 3:11 PM Exam Location: [facility] Patient Status: Outpatient Admit Date: 04/09/2022 Staff Ordering Physician: Carlo Godoy DO Director Of Veterans Affairs: Елена Johns RDCS Attending Provider: Carlo Godoy DO Referring Physician: Walt HAMILTON; Exam Type: CA echo doppler color flow Study Info Indications I10 - Essential (primary) hypertension Complete two-dimensional, color flow and Doppler transthoracic echocardiogram is performed. Summary 1. Complete two-dimensional, color flow and Doppler transthoracic echocardiogram is performed. 2. Left ventricular chamber dimension is normal. 3. Left ventricular systolic function is normal, estimated at 60-65%. 4. There is mild concentric increased left ventricular wall thickness. 5. The left ventricular diastolic function is grade I diastolic dysfunction. 6. E/e' 13 is mildly elevated. 7. There is mild aortic valve sclerosis. 8. There is mild mitral valve regurgitation. 9. No pulmonary hypertension, estimated pulmonary arterial systolic pressure is 15 mmHg. Left Ventricle E/e' 13 is mildly elevated. Left ventricular chamber dimension is normal. Left ventricular systolic function is normal, estimated at 60-65%. There is mild concentric increased left ventricular wall thickness. The left ventricular diastolic function is grade I diastolic dysfunction. Right Ventricle Right ventricular systolic function is normal and with normal TAPSE 2.3 cm. Right ventricular chamber dimension is normal. Left Atria Left atrial chamber dimension is normal. Right Atria Right atrial chamber dimension is normal. Aortic Valve The aortic valve is trileaflet. There is mild aortic valve sclerosis. There is no aortic valve stenosis. There is no aortic valve regurgitation. Pulmonic Valve There is no pulmonic regurgitation. Mitral Valve There is no mitral valve stenosis. There is mild mitral valve regurgitation. Tricuspid Valve There is no tricuspid valve regurgitation. No pulmonary hypertension, estimated pulmonary arterial systolic pressure is 15 mmHg. Pericardium/Pleural There is no pericardial effusion. Inferior Vena Cava Normal inferior vena cava with >50% collapse upon inspiration consistent with normal right atrial pressure, 5 mmHg. Aorta The aortic root size at the sinus of Valsalva is normal. Left Ventricular Outflow Tract Name Value Normal LVOT 2D LVOT Diameter 2.0 cm LVOT Doppler LVOT Peak Velocity 113 cm/s LVOT Peak Gradient 5 mmHg LVOT Mean Gradient 3 mmHg LVOT VTI 20 cm LVOT VTI/AV VTI Ratio 0.9 LVOT Stroke Volume 65 ml Pulmonic Valve Name
[2022-04-09 14:43] LABS: Creatinine Urine 209.23 mg/dL (40-278); MALB Creatinine Ratio 15.6 mg/g (0-30); Microalbumin Urine Random 32.7 mg/L
== END 2022-04-09 14:19 | disposition home or self-care (01) ==
LOC: CHSLAB 14:21
PROVIDERS: PCP Family Medicine; Visit Provider Family Medicine
DX: E11.9 Type 2 diabetes mellitus without complications (principal); I10 Essential (primary) hypertension
CPT/HCPCS: 82043; 93306

== ENCOUNTER 2022-07-20 12:37 | Outpatient (CLI) | payer OTHER, SELFPAY ==
--- NOTE | ~2022-07-20 | MM_ITS ---
EXAMINATION: MM screening mammo BI HISTORY: Screening TECHNIQUE: Craniocaudal and mediolateral oblique images were obtained. CAD analysis was submitted and interpreted. COMPARISON: Comparison to multiple prior studies sequentially, with oldest reviewed study dated 11/12. BREAST PARENCHYMAL COMPOSITION: Breast composed of scattered areas of fibroglandular density FINDINGS: There are new bilateral breast masses in the subareolar location of the right breast and in the peria reolar location of the left breast. No suspicious calcifications or architectural distortion. IMPRESSION: 1. New bilateral breast masses. 2. Additional mammographic views and possible breast ultrasound are recommended. BI-RADS Category 0: Incomplete: Needs additional imaging evaluation. Reviewed, dictated and finalized at location A. IMPRESSION: 1. New bilateral breast masses. 2. Additional mammographic views and possible breast ultrasound are recommended . BI-RADS Category 0: Incomplete: Needs additional imaging evaluation.
== END 2022-07-20 12:38 | disposition home or self-care (01) ==
LOC: CHSIMG 12:38
PROVIDERS: PCP Family Medicine; Visit Provider Family Medicine
DX: Z12.31 Encounter for screening mammogram for malignant neoplasm of breast (principal); R92.8 Other abnormal and inconclusive findings on diagnostic imaging of breast
CPT/HCPCS: 77067

== ENCOUNTER 2022-10-09 09:36 | Outpatient (CLI) | payer OTHER, SELFPAY ==
--- NOTE | ~2022-10-09 | XR_ITS ---
Clinical Indication: Bronchitis AP and lateral views of the chest: Comparison: 05/02/2018 Findings: The lungs are clear, without evidence of focal consolidation or pleural effusion. Cardiome diastinal silhouette is within normal limits. Bones and soft tissues are unremarkable. Impression: Normal chest. Reviewed, dictated and finalized at [facility]. Impression: Normal chest.
[2022-10-09 09:50] LABS: Basophils Absolute Auto 0.03 K/mm3 (0.00-0.10); Basophils Percent Auto 0.4 % (0.0-1.0); Eosinophils Absolute Auto 0.21 K/mm3 (0.02-0.50); Eosinophils Percent Auto 2.9 % (1.0-6.0); Hematocrit 36.7 % (35.0-49.0); Hemoglobin 11.1 g/dL (12.0-15.0); Immature Granulocyte Absolute 0.02 K/mm3 (0.00-0.00); Immature Granulocyte Percent A 0.3 % (0.0-0.0); Lymphocytes Absolute Auto 1.46 K/mm3 (1.10-4.50); Lymphocytes Percent Auto 20.5 % (18.0-42.0); Mean Corpuscular HGB Conc 30.2 g/dL (32.0-36.0); Mean Corpuscular Hemoglobin 23.7 pg (27.0-31.0); Mean Corpuscular Volume 78.4 fL (78.0-102.0); Mean Platelet Volume 10.7 fl (9.2-11.8); Monocytes Absolute Auto 0.78 K/mm3 (0.10-0.90); Monocytes Percent Auto 10.9 % (2.0-11.0); Neutrophils Absolute Auto 4.6 K/mm3 (1.7-7.2); Platelet Count Result 232 K/mm3 (150-420); Red Blood Count 4.68 M/mm3 (4.20-5.40); Red Cell Distribution Width 16.9 % (11.6-14.4); White Blood Count 7.1 K/mm3 (4.8-10.8)
[2022-10-09 10:39] LABS: Alanine Aminotransferase 18 U/L (14-59); Albumin Level 3.1 g/dL (3.4-5.0); Alkaline Phosphatase 123 U/L (46-116); Anion Gap 8 mmol/L (8-16); Aspartate Amino Transferase 15 U/L (15-37); Bilirubin,Total 0.5 mg/dL (0.00-1.00); Blood Urea Nitrogen 10 mg/dL (7-18); Calcium 8.5 mg/dL (8.5-10.1); Carbon Dioxide 30 mmol/L (21-32); Chloride 105 mmol/L (98-108); Estimated Glomerular Filt Rate > 60; Glucose 99 mg/dL (70-99); Osmolality Calculated 295 mOsm/kg (285-295); Sodium 143 mmol/L (136-145); Total Protein 7.5 g/dL (6.4-8.2)
== END 2022-10-09 09:37 | disposition home or self-care (01) ==
PROVIDERS: PCP Family Medicine; Visit Provider Family Medicine
DX: J40 Bronchitis, not specified as acute or chronic (principal)
CPT/HCPCS: 36415; 71046; 80053; 85025

== ENCOUNTER 2023-04-15 08:56 | Outpatient (CLI) | payer OTHER, SELFPAY ==
[2023-04-15 09:18] LABS: Hematocrit 33.7 % (35.0-49.0); Mean Corpuscular HGB Conc 29.7 g/dL (32.0-36.0); Mean Corpuscular Hemoglobin 21.3 pg (27.0-31.0); Mean Corpuscular Volume 71.9 fL (78.0-102.0); Mean Platelet Volume 10.2 fl (9.2-11.8); Platelet Count Result 325 K/mm3 (150-420); Red Blood Count 4.69 M/mm3 (4.20-5.40); White Blood Count 15.4 K/mm3 (4.8-10.8)
[2023-04-15 09:31] LABS: Hemoglobin A1C 5.6 % (<5.7)
[2023-04-15 10:08] LABS: Alanine Aminotransferase 18 U/L (14-59); Albumin Level 3.5 g/dL (3.4-5.0); Alkaline Phosphatase 131 U/L (46-116); Anion Gap 13 mmol/L (8-16); Aspartate Amino Transferase 11 U/L (15-37); Bilirubin,Total 0.8 mg/dL (0.00-1.00); Blood Urea Nitrogen 21 mg/dL (7-18); Calcium 8.8 mg/dL (8.5-10.1); Carbon Dioxide 25 mmol/L (21-32); Chloride 101 mmol/L (98-108); Cholesterol 150 mg/dL (0-200); Estimated Glomerular Filt Rate > 60; Glucose 100 mg/dL (70-99); HDL Direct 72 mg/dL (40-60); LDL Cholesterol Calculated 63 mg/dL (<130); Osmolality Calculated 291 mOsm/kg (285-295); Sodium 139 mmol/L (136-145); Total Protein 7.9 g/dL (6.4-8.2); Triglycerides 73 mg/dL (0-150)
== END 2023-04-15 08:57 | disposition home or self-care (01) ==
DX: Z79.899 Other long term (current) drug therapy (principal)
CPT/HCPCS: 36415; 80053; 80061; 83036; 84443; 85027

== ENCOUNTER 2023-08-29 10:46 | Outpatient (CLI) | payer OTHER, SELFPAY ==
--- NOTE | ~2023-08-29 | XR_ITS ---
Right Knee Technique: AP and lateral views were obtained. Clinical History: Pain Findings: No fracture or dislocation is seen. Osseous alignment is anatomic. There is moderate tricom partmental degenerative change. Soft tissues are unremarkable. No joint effusion is seen. Impression: Moderate tricompartmental degenerative change. Reviewed, dictated and finalized at [facility]. Impression: Moderate tricompartmental degenerative change.
== END 2023-08-29 10:47 | disposition home or self-care (01) ==
PROVIDERS: PCP Family Medicine; Visit Provider Nurse Practitioner Family
DX: M25.561 Pain in right knee (principal)
CPT/HCPCS: 73560

== ENCOUNTER 2023-10-30 09:04 | Outpatient (CLI) | payer OTHER, SELFPAY ==
--- NOTE | ~2023-10-30 | XR_ITS ---
Right Knee Technique: AP, lateral, and sunrise views were obtained. Clinical History: Pain Findings: No fracture or dislocation is seen. Osseous alignment is anatomic. Moderate tricompartmenta l degenerative change present. Soft tissues are unremarkable. No joint effusion is seen. Impression: Moderate tricompartmental degenerative change. Reviewed, dictated and finalized at [facility]. Impression: Moderate tricompartmental degenerative change.
== END 2023-10-30 09:05 | disposition home or self-care (01) ==
LOC: CHSIMG 09:06
PROVIDERS: PCP Family Medicine; Visit Provider Family Medicine
DX: M25.561 Pain in right knee (principal); M17.11 Unilateral primary osteoarthritis, right knee
CPT/HCPCS: 73562

== ENCOUNTER 2024-09-17 13:54 | Outpatient (CLI) | payer OTHER, SELFPAY ==
--- OUTSIDE RECORDS SUMMARY | 2024-09-17 13:57 | XMS_ITS | Clinical Summary ---
Author Organization [facility] Address [address] [place] [address] Care Team Providers Care Monument Installer Name Role Phone Malik Mcdowell MD Unavailable [phone] Patricia Farah NP Primary Care Provider [phone] Allergies Active Allergy Reactions Criticality Noted Date Comments Metoprolol Headache 02/13/2018 Medications * This document contains information received from the source organization and may not represent a complete record from that organization. oxyCODONE-acetam inophen 7.5-325 MG tablet Take 1 tablet by mouth every 4 (four) hours as needed for Pain. Active levothyroxine 50 MCG tabletIndication s:Hypothyroidism Take 50 mcg by mouth daily. 07/15/2018 Active aripiprazole 10 MG tablet Take 10 mg by mouth daily. Active morphine ER 15 MG 12 hr tabletIndication s:Severe Pain Take 15 mg by mouth 2 (two) times daily. 0 04/18/2016 Active fluticasone propionate 50 MCG/ACT nasal spray INSTILL 2 SPAYS INTO EACH NOSTRIL TWICE A DAY FOR ONE WEEK THEN 2 SPRAYS TO EACH NOSTRIL EVERY NIGHT 5 10/08/2017 Active ATENOLOL 25 MG tablet TAKE 1 TABLET BY MOUTH EVERY MORNING 90 tablet 3 05/05/2018 Active cyanocobalamin 1000 MCG/ML injectionIndicat ions:Anemia Inject 1,000 mcg into the muscle monthly. 08/17/2018 Active ARIPiprazole, sensor, 20 MG TabIndications:P sychiatric Disturbance Take 25 mg by mouth daily. 07/18/2018 Active gabapentin 100 MG capsuleIndicatio ns:Neuropathy Take 300 mg by mouth 3 (three) times daily. 07/18/2018 Active levothyroxine 12.5 mcg TabIndications:H ypothyroidism Take 50 mcg by mouth every morning. 07/18/2018 Active oxyCODONE-acetam inophen 5-325 MG tabletIndication s:Severe Pain Take 1 tablet by mouth daily as needed. 07/18/2018 Active trazodone 50 MG tabletIndication s:Sleep Disorder Take 25 mg by mouth nightly at bedtime. 07/18/2018 Active MORPHINE SULFATE ORIndications:Pa in Take 15 mg by mouth every 12 (twelve) hours as needed. 07/18/2018 Active furosemide 40 MG tabletIndication s:Swelling Take 40 mg by mouth daily. 07/18/2018 Active metolazone 5 MG tabletIndication s:Swelling Take 2.5 mg by mouth daily. on Saturday, and Saturday only 07/18/2018 Active atorvastatin 20 MG tabletIndication s:Hyperlipidemia Take 20 mg by mouth nightly at bedtime. 07/18/2018 Active ranitidine 150 MG tabletIndication s:Esophageal reflux Take 150 mg by mouth daily as needed. 07/18/2018 Active ferrous sulfate, 65 mg elemental, 325 (65 FE) MG tabletIndication s:Anemia Take 325 mg by mouth 2 (two) times a day. 07/18/2018 Active Cetirizine HCl 10 MG CapIndications:S easonal Allergy Take 10 mg by mouth daily. 07/18/2018 Active POTASSIUM CHLORIDE ORIndications:hy pkalemia Take 10 mEq by mouth 2 (two) times daily. take 2- 10 meq tablets 2 times daily 07/30/2018 Active Active Problems Problem Noted Date Diagnosed Date Obstructive sleep apnea syndrome 02/13/2018 Tachycardia 06/09/2016 Abnormal EKG Morbid obesity Low back pain Hypothyroidism Hip ankylosis Bipolar disorder ([facility]) Acquired cavovarus deformity of foot Family History Medical History Relation Comments Hypertension Father Relation Status Comments Father Alive Mother Alive Social History Tobacco Use Types Packs/Day Years Used Date Smoking Tobacco: Former Cigarettes Q uit: 02/14/2016 Smokeless Tobacco: Never Alcohol Use Standard Drinks/Week Comments No 0 (1 standard drink = 0.6 oz pur e alcohol) Comments Unknown Sex and Gender Information Value Date Recorded Sex Assigned at Not on file Legal Sex Female 11:01 PM CDT Gender Identity Not on file Sexual Orientation Not on file Occupation Industry Job Start Date Job End Date Not on file Not on file Not on file Not on file Last Filed Vital Signs Vital Sign Reading Time Taken Comments Blood Pressure 136/82 03/06/2019 12:43 PM TANK CALIBRATOR Pulse 82 03/06/2019 12:43 PM TANK CALIBRATOR Temperature 37.2 C (98.9 F) 03/06/2019 12:43 PM TANK CALIBRATOR Respiratory Rate 22 03/06/2019 12:43 PM TANK CALIBRATOR Oxygen Saturation 96% 03/06/2019 12:43 PM TANK CALIBRATOR Inhaled Oxygen Concentration - - Weight 127 kg (280 lb) 07/18/2018 1:59 PM CDT Height 167.6 cm (5' 6) 07/18/2018 1:59 PM CDT Body Mass Index 45.19 07/18/2018 1:59 PM CDT Plan of Treatment Health Maintenance Due Date Last Done Comments Cervical Cancer Screening Pa p Smear (Age 30 to 64) Every 3 Years 1970 Colorectal Cancer Screening Colonoscopy (10 Years) 1970 Annual Physical 05/16/1974 Hepatitis C 05/16/1989 Hepatitis B Vaccines (1 of 3 - 19+ 3-dose series) 05/16/1990 Cervical Cancer Screening Pa p with HPV Testing (Age 30 to 64) Every 5 Years 05/16/2001 Cervical Cancer Screening wi HPV 05/16/2001 Mammogram Screening 2011 Pneumococcal Vaccine: 50+ Years (1 of 1 - PCV) 05/16/2021 Zoster Vaccines (1 of 2) 05/16/2021 COVID-19 Vaccine (4 - 2023-2 5 season) 2023 01/19/2021, 05/25/2020, 04/27/2020 DTaP, Tdap and Td Vaccines ( 2 - Td or Tdap) 10/19/2026 10/19/2016, 10/03/2010 Meningococcal B Vaccine Aged Out No l onger eligible based on patient's age to complete this topic Meningococcal Vaccine Aged Out No millie artem eligible based on patient's age to complete this topic RSV Immunizations Under 20 Months Aged Out No longer eligible b ased on patient's age to complete this topic Insurance [employer] Care Teams Monument Installer Relationship Specialty Start Date End Date Patricia Farah NP [address] [address] PCP - General Nurse Practitioner Family 03/27/21 Malik Mcdowell MD [address] [place] [address] [employer] CARDIOVASCULAR DISEASE 04/30/16
--- OUTSIDE RECORDS SUMMARY | 2024-09-17 13:57 | XMS_ITS | Clinical Summary ---
Author Organization [facility] Address [address] [place] [address] Phone Care Team Providers Care Remote Sensing Analyst Name Role Phone Rony Lyon MD Primary Care Provider Allergies No known active allergies Medications ARIPiprazole (ABILIFY) 10 MG Tablet Take 10 mg by mouth daily. 3 04/09/2018 Active cetirizine (ZYRTEC) 10 MG Tablet Take 10 mg by mouth daily. 2 04/15/2018 Active fluticasone (FLONASE) 50 MCG/ACT Suspension INSTILL 2 SPAYS INTO EACH NOSTRIL TWICE A DAY FOR ONE WEEK THEN 2 SPRAYS TO EACH NOSTRIL EVERY NIGHT 10/08/2017 Active levothyroxine (SYNTHROID) 50 MCG Tablet Take 50 mcg by mouth daily. 5 04/07/2018 Active morphine (MS CONTIN) 15 MG Tablet Controlled Release TAKE 1 TABLET BY MOUTH EVERY 12 HOURS 0 04/28/2018 Active oxyCODONE-aceta minophen (PERCOCET) 7.5-325 MG Tablet TAKE 1 TABLET BY MOUTH EVERY 6 HOURS NEEDED FOR PAIN 0 04/28/2018 Active atenolol (TENORMIN) 25 MG Tablet TAKE 1 TABLET BY MOUTH EVERY MORNING 05/05/2018 Active Sulfamethoxazol e-Trimethoprim (BACTRIM PO) Take by mouth. Active ibuprofen (MOTRIN) 800 MG Tablet Take 800 mg by mouth every 8 hours. Active Active Problems No known active problems Family History Medical History Relation Name Comments Prostate Cancer Father Relation Name Status Comments Father Social History Tobacco Use Types Packs/Day Years Used Date Smoking Tobacco: Every Day Cigarettes Smokeless Tobacco: Never Tobacco Cessation:Ready to Q uit: No; Counseling Given: Yes Alcohol Use Standard Drinks/Week Comments Not Currently 0 (1 standard drink = 0.6 oz pur e alcohol) Sexually Active Control Partners Comments Never Comments No Sex and Gender Information Value Date Recorded Sex Assigned at Not on file Legal Sex Female 11:33 AM [employer] SOMM[employer] Gender Identity Not on file Sexual Orientation Not on file Last Filed Vital Signs Vital Sign Reading Time Taken Comments Blood Pressure 120/74 06/02/2018 1:16 PM CDT Pulse 88 06/02/2018 1:16 PM CDT Temperature 36.7 C (98.1 F) 06/02/2018 1:16 PM CDT Respiratory Rate 17 06/02/2018 1:16 PM CDT Oxygen Saturation 97% 06/02/2018 1:16 PM CDT Inhaled Oxygen Concentration - - Weight - - Height - - Body Mass Index - - Plan of Treatment Health Maintenance Due Date Last Done Comments Hepatitis C Virus (HCV) Screening 1970 Hepatitis B Immunization (1 of 3 - 19+ 3-dose series) 05/16/1990 Pap Smear 05/16/1992 Cervical Cancer Screening (CCS) 05/16/2001 HPV/Cotest 05/16/2001 Cologuard 05/16/2016 Colonoscopy 05/16/2016 Colorectal Cancer Screening 05/16/2016 Immunochemical Fecal Occult Blood 05/16/2016 Pneumococcal Immunization (50+ years) (1 of 1 - PCV) 05/16/2021 Zoster Immunization (1 of 2) 05/16/2021 SARS-COV-2 Immunization ( season) 2023 01/19/2021, 05/25/2020, 04/27/2020 Influenza Immunization (#1) 10/12/202408/2017, 11/09/2016, 12/04/2013, Additional history exists Respiratory Syncytial Virus (RSV) Immunization (Adult) (1 - 1-dose 75+ series) 05/16/2046 DTaP/Tdap/Td Immunization Discontinued 10/19/2016, TdaP Immunization Completed 10/19/2016 Human Papillomavirus (HPV) Immunization Aged Out No longer eligible based on patient's age to complete this topic Meningococcal Immunization (ACWY) Aged Out No longer eligible based on patient's age to complete this topic Rotavirus Immunization Aged Out No lo nger eligible based on patient's age to complete this topic Insurance MEDICAID [employer] Advance Directives Documents on File Type Date Recorded Patient Credit Support Counselor Expl anation Power of Compensation Administrator for Health Care 05/01/2018 10:13 AM POA Health care Care Teams Remote Sensing Analyst Relationship Specialty Start Date End Date Rony Lyon MD [address] [place] [address] PCP - General Internal Medicine 04/01/18
--- OUTSIDE RECORDS SUMMARY | 2024-09-17 13:57 | XMS_ITS | Encounter Summary ---
Author Organization [facility] Address [address] [place] [address] Care Team Providers Care Color Paste Mixer Name Role Phone Rony Lyon MD Primary Care Provider [phone] Malik Mcdowell MD Unavailable [phone] Patricia Farah NP Primary Care Provider [phone] Encounter Details Date Type Department Care Team (Late st Contact Info) Description 04/27/2016 Abstract [facility] [address] [place] [address] Malik Mcdowell MD [address] [place] [address] Social History Tobacco Use Types Packs/Day Years Used Date Smoking Tobacco: Former Cigarettes Q uit: 02/14/2016 Alcohol Use Standard Drinks/Week Comments No 0 [...] file Not on file Not on file documented as of this encounter Plan of Treatment Not on file documented as of this encounter Procedures Procedure Name Priority Date/Time Associated Diagnosis Comments TSH (OUTSIDE LAB) Routine 04/26/2016 documented in this encounter Results * TSH (OUTSIDE LAB) (04/26/2016) TSH 0.14 FREE T4 1.78 04/26/2016 us Doc [facility] Abstract LAB-OUTSIDE/ABSTRACTED Final Result documented in this encounter Visit Diagnoses Not on filedocumented in this encounter Care Teams Color Paste Mixer Relationship Specialty Start Date End Date Rony Lyon MD [address] [place] [address] PCP - General INTERNAL MEDICINE 03/20/16 02/05/19 Patricia Farah NP [address] [phone] PCP - General Nurse Practitioner Family 03/27/21 Malik Mcdowell MD [address] [place] [address] [employer] CARDIOVASCULAR DISEASE 04/30/16 documented as of this encounter
[2024-09-17 14:12] LABS: Hematocrit 33.2 % (35.0-49.0); Hemoglobin 9.7 g/dL (12.0-15.0); Immature Granulocyte Percent A 0.2 % (0.0-0.0); Lymphocytes Absolute Auto 2.38 K/mm3 (1.10-4.50); Mean Corpuscular HGB Conc 29.2 g/dL (32-36); Mean Corpuscular Hemoglobin 20.9 pg (27.0-31.0); Mean Corpuscular Volume 71.6 fL (78.0-102.0); Nucleated Red Blood Cells Absolute Auto 0.00 K/mm3 (0.00-0.00); Nucleated Red Blood Cells Perc 0.0 % (0-0.0); Platelet Count Result 282 K/mm3 (150-420); Red Blood Count 4.64 M/mm3 (4.20-5.40); White Blood Count 11.5 K/mm3 (4.8-10.8)
[2024-09-17 14:26] LABS: Hemoglobin A1C 5.5 % (<5.7)
[2024-09-17 15:00] LABS: Alanine Aminotransferase 15 U/L (6-35); Albumin Level 4.4 g/dL (3.5-5.1); Alkaline Phosphatase 118 U/L (38-126); Anion Gap 6 mmol/L (4-12); Aspartate Amino Transferase 17 U/L (14-36); Bilirubin,Total 0.5 mg/dL (0.2-1.3); Blood Urea Nitrogen 21 mg/dL (7-17); Calcium 9.7 mg/dL (8.4-10.2); Carbon Dioxide 26 mmol/L (22-30); Chloride 109 mmol/L (98-107); Cholesterol 133 mg/dL (0-200); Estimated Glomerular Filt Rate > 60; Glucose 107 mg/dL (65-110); HDL Direct 69 mg/dL; Osmolality Calculated 295 mOsm/kg (285-295); Potassium 4.4 mmol/L (3.4-5.0); Sodium 141 mmol/L (137-145); Total Protein 7.2 g/dL (6.3-8.2); Triglycerides 71 mg/dL (<150)
[2024-09-17 15:29] LABS: Thyroid Stimulating Hormone Reflex 0.880 uIU/mL (0.465-4.68)
[2024-09-17 16:04] LABS: Vitamin B12 473.0 pg/mL (239-931)
[2024-09-22 09:47] LABS: HIV 1 P24 AG Negative (Negative); HIV 1/2 AB Negative (Negative)
[2024-09-22 10:12] LABS: Ferritin 9.83 ng/mL (11.1-264)
== END 2024-09-17 13:55 | disposition home or self-care (01) ==
LOC: CHSLAB 13:55
PROVIDERS: PCP Family Medicine; Visit Provider Family Medicine
DX: G47.33 Obstructive sleep apnea (adult) (pediatric) (principal); D50.9 Iron deficiency anemia, unspecified; F31.9 Bipolar disorder, unspecified; E11.9 Type 2 diabetes mellitus without complications; E03.9 Hypothyroidism, unspecified; E53.8 Deficiency of other specified B group vitamins; I10 Essential (primary) hypertension
CPT/HCPCS: 36415; 80053; 80061; 82607; 82728; 82746; 83036; 84443; 85025; 87806

== ENCOUNTER 2024-10-09 13:15 | Outpatient (CLI) | payer OTHER, SELFPAY ==
--- OUTSIDE RECORDS SUMMARY | 2023-12-20 09:15 | XMS_ITS ---
Author Organization [email or web address] Address [address] [place] [address] Care Team Providers Care Choke Setter Name Role Phone OCTAVIA SIMMONS Unavailable [phone] Encounters Encounter Location Date Provider Diagnosis [facility] [id number] [place] [address] 12/20/2023 OCTAVIA SIMMONS Plan Of Treatment Next Appt Details Provider Name:OCTAVIA STANTON, 11/09/2024 01:00:00 PM, [place], [address], Progress Notes * DAVID MUNSON ADOB:1970 (54 yo F)Acc No.[id number]:12/20/2023 Patient: DAVID VALENTIN Provider: Terence Simmons DPM :1970 A ge:53 Y S ex:Female Date:12/20/2023 Address: [address], [facility] Subjective: * Chief Complaints: * * Medical History: Objective: * Vitals: Assessment: Plan: * Treatment: * Billing Information: * Visit Code: * Procedure Codes: * Electronic signature of CARLYN SIMMONS DPM on 10/09/2024 at 01:17 PM CDT Sign off status: Pending * Provider: Terence Simmons DPM Date: 1 02/18/2023 Generated for Khoai ng/Faxing/eTransmitting on: 0 10/09/2024 01:17 PM CDT
--- OUTSIDE RECORDS SUMMARY | 2024-10-09 13:17 | XMS_ITS | Patient Health Record ---
Author Organization [facility] Address [address] [place] [address] Care Team Providers Care Cutter Apprentice Hand Name Role Phone OCTAVIA SIMMONS Unavailable [phone] Allergies Allergen (clinical drug ingredient) Drug/Non Drug Allergy documented on EMR Reaction Allergy Type Onset Date Status Substance with sulfonamide structure and antibacterial mechanism of action (substance) Sulfa Antibiotics Unknown Drug Allergy Active Reason For Referral No Information Social History Tobacco Use: Social History Observation Description Date Details (start date - stop date) Current Smoker NA - NA Tobacco Use/Smoking Question Answer Notes Tobacco use: current smoker Alcohol Screen (Audit-C) Question Answer Notes Did you have a drink containing alcohol in the p ast year? No Points 0 Interpretation Negative Section Notes: 30 year history of smoking Problems Problem Type SNOMED Code ICD Code Onset Dates Problem Status W/U Status Risk Notes Problem Other specified peripheral vascular diseases (I73.89) Active confirmed Problem Ulcer of right foot (disorder) (100212711) Ulcer of right foot, limited to breakdown of skin (L97.511) Active confirmed Vital Signs Heart Rate 85 /min 08/21/2024 Height-cm 167.64 cm 08/21/2024 Blood pressure diastolic 88 mm Hg 08/21/2024 Weight-kg 136.08 kg 08/21/2024 Height 66 in 08/21/2024 Blood pressure systolic 139 mm Hg 08/21/2024 Weight 300 lbs 08/21/2024 BMI 48.42 kg/m2 08/21/2024 Encounters Encounter Location Date Provider Diagnosis [facility] [address] [place] [address] 08/21/2024 OCTAVIA SIMMONS Tinea unguium B35.1 ; Other specified peripheral vascular diseases I73.89 ; Corns and callosities L84 and Ulcer of right foot, limited to breakdown of skin L97.511 Assessments Encounter Date Diagnosis (ICD Code) Assessment Notes Treatment Notes Treatment Clinical Notes Section Notes 08/21/2024 Tinea unguium (ICD-10 - B35.1) 08/21/2024 Other specified peripheral vascular diseases (ICD-10 - I73.89) We discussed preventative foot care. We discussed preventative foot hygiene. We instructed the patient on how to care for their feet, and to contact the office if any wounds develop, or signs of infection arise. The nails were debrided of all fungal material and debris. Debridement included a reduction in bulk of the nail by use of a sharp upholstery cutter and/or rotary instrument. Reason for debridement include relief of pain, treatment of infection, temporary removal of an anatomic deformity such as onychauxis or onychocryptosis, exposure of subungual conditions for the purpose of treatment as well as diagnosis, and/or as a prophylactic measure to prevent further problems, such as subungual ulceration in an insensate patient with onychauxis. Antiseptic was applied. Debrided 10 nails. 08/21/2024 Corns and callosities (ICD-10 - L84) 08/21/2024 Ulcer of right foot, limited to breakdown of skin (ICD-10 - L97.511) Plan Of Treatment Next Appt Details Provider Name:OCTAVIA STANTON, 11/09/2024 01:00:00 PM, [address] [place], [address], Insurance Providers Payer Name Payer Address Payer Phone Subscriber Number Group Number Insured Name Patient Relationship to Insured Coverage Start Date Coverage End Date [facility] [address] [place] [address] [id number] DAVID MUNSON Self - patient is the insured Medical (General) History Medical History History ICD Code Thyroid disease COPD Depression / anxiety Left drop foot Surgical History Surgery Date(Month/Year) Four surgeries on hip 1998
--- OUTSIDE RECORDS SUMMARY | 2024-10-09 13:17 | XMS_ITS | Clinical Summary ---
Author Organization [facility] Address [address] [place] [address] Phone Care Team Providers Care Roof Fixer Name Role Phone Rony Lyon MD Primary Care Provider [phone] Allergies No known active allergies Medications ARIPiprazole [...] on file Legal Sex Female 11:33 AM ADMISSIONS COUNSELOR Gender Identity Not on file Sexual Orientation [...] age to complete this topic Insurance MEDICAID [facility] [employer] Advance Directives Documents on File Type Date Recorded Patient Mass Spectrometry Specialist Expl anation Power of Art Consultant for Health Care 05/01/2018 10:13 AM POA Health care Care Teams Roof Fixer Relationship Specialty Start Date End Date Rony Lyon MD [address] [place] [address] PCP - General Internal Medicine 04/01/18
--- OUTSIDE RECORDS SUMMARY | 2024-10-09 13:17 | XMS_ITS | Encounter Summary ---
Author Organization [facility] Address [address] [place] [address] Care Team Providers Care Manager Generation Name Role Phone Rony Lyon MD Primary Care Provider [phone] Malik Mcdowell MD Unavailable [phone] Patricia Farah NP Primary Care Provider [phone] Encounter Details Date Type Department Care Team (Late st Contact Info) Description 04/27/2016 Abstract [facility] [address] [place] [address] Malik Mcdowell MD [address] [place] [address] Social History Tobacco Use Types [...] on filedocumented in this encounter Care Teams Manager Generation Relationship Specialty Start Date End Date Rony Lyon MD [address] [place] [address] PCP - General INTERNAL MEDICINE 03/20/16 02/05/19 Patricia Farah NP [address] [phone] PCP - General Nurse Practitioner Family 03/27/21 Malik Mcdowell MD [address] [place] [address] [place]cova V Belt Coverer CARDIOVASCULAR DISEASE 04/30/16 documented as of this encounter
--- OUTSIDE RECORDS SUMMARY | 2024-10-09 13:17 | XMS_ITS | Clinical Summary ---
Author Organization [facility] Address [address] [place] [address] Care Team Providers Care Carpentry Specialist Name Role Phone Malik Mcdowell MD Unavailable Patricia Farah NP Primary Care Provider [phone] Allergies Active Allergy Reactions Criticality Noted Date [...] back pain Hypothyroidism Hip ankylosis Bipolar disorder ([facility]) Acquired cavovarus deformity of foot [...] Comments Blood Pressure 136/82 03/06/2019 12:43 PM SERVER ADMINISTRATOR Pulse 82 03/06/2019 12:43 PM SERVER ADMINISTRATOR Temperature 37.2 C (98.9 F) 03/06/2019 12:43 PM SERVER ADMINISTRATOR Respiratory Rate 22 03/06/2019 12:43 PM SERVER ADMINISTRATOR Oxygen Saturation 96% 03/06/2019 12:43 PM SERVER ADMINISTRATOR Inhaled Oxygen Concentration - - Weight 127 [...] this topic Insurance [employer] Care Teams Carpentry Specialist Relationship Specialty Start Date End Date Patricia Farah NP [address] [address] PCP - General Nurse Practitioner Family 03/27/21 Malik Mcdowell MD [address] [place] [address] Lagrange Ear Pull Machine Operator CARDIOVASCULAR DISEASE 04/30/16
[2024-10-09 13:20] VITALS: BP 136/80; PULSE 80; RESP 14; TEMP 36.6; O2SAT 97; BMI 46.9
[2024-10-09] MEDS: IRON SUCROSE COMPLEX 100 MG in SODIUM CHLORIDE 0.9% IV 100 ML 200 MG IVPB (13:20)
--- NOTE | 2024-10-09 14:08 | PC.NURSE ---
Tolerated Venofer #1 of 3 infusions well. see MAR/patient care notes.
== END 2024-10-09 13:16 | disposition home or self-care (01) ==
PROVIDERS: PCP Family Medicine; Visit Provider Family Medicine
DX: D50.9 Iron deficiency anemia, unspecified (principal)
CPT/HCPCS: 96365; J1756

== ENCOUNTER 2024-10-16 13:20 | Outpatient (CLI) | payer OTHER, SELFPAY ==
--- OUTSIDE RECORDS SUMMARY | 2023-12-20 09:15 | XMS_ITS ---
Author Organization [facility] Address [address] [place] [address] Care Team Providers Care Admin Prog Coord Name Role Phone OCTAVIA SIMMONS Unavailable [phone] Encounters Encounter Location Date Provider Diagnosis [facility] [id number] [place] [phone] 12/20/2023 OCTAVIA SIMMONS Plan Of Treatment Next Appt Details Provider Name:OCTAVIA STANTON, 11/09/2024 01:00:00 PM, [place], [address], Progress Notes * DAVID MUNSON ADOB:1970 (54 yo F)Acc No.[id number]:12/20/2023 Patient: DAVID VALENTIN Provider: Terence Simmons DPM :1970 A ge:53 Y S ex:Female Date:12/20/2023 Address: [address], [facility] Subjective: * Chief Complaints: * * Medical History: Objective: * Vitals: Assessment: Plan: * Treatment: * Billing Information: * Visit Code: * Procedure Codes: * Electronic signature of CARLYN SIMMONS DPM on 10/16/2024 at 01:34 PM CDT Sign off status: Pending * Provider: Terence Simmons DPM Date: 1 02/18/2023 Generated for Printi ng/Faxing/eTransmitting on: 0 10/16/2024 01:34 PM CDT
[2024-10-16 13:27] VITALS: BMI 46.7
--- OUTSIDE RECORDS SUMMARY | 2024-10-16 13:33 | XMS_ITS | Clinical Summary ---
Author Organization [facility] Address [address] [place] [address] Care Team Providers Care Dry End Operator Name Role Phone Carlo Godoyrish Primary Care Provider Allergies Active Allergy Reactions Criticality Noted Date Comments Metoprolol Headache Low 02/13/2018 Medications ARIPiprazole (ABILIFY) 10 mg tablet Take 1 tablet (10 mg total) by mouth daily 9 Active atenoloL (TENORMIN) 25 mg tablet TAKE 1 TABLET BY MOUTH EVERY MORNING 9 Active cetirizine (ZyrTEC) 10 mg tablet Take 1 tablet (10 mg total) by mouth daily 9 Active fluticasone propionate (FLONASE) 50 mcg/actuation nasal spray INSTILL 2 SPAYS INTO EACH NOSTRIL TWICE A DAY FOR ONE WEEK THEN 2 SPRAYS TO EACH NOSTRIL EVERY NIGHT 8 Active levothyroxine (SYNTHROID) 50 mcg tablet Take 1 tablet (50 mcg total) by mouth daily 9 Active morphine ER (MS CONTIN) 15 mg 12 hr tablet TAKE 1 TABLET BY MOUTH EVERY 12 HOURS 9 Active oxyCODONE-aceta minophen (PERCOCET) 7.5-325 mg per tablet TAKE 1 TABLET BY MOUTH EVERY 6 HOURS NEEDED FOR PAIN 9 Active traZODone (DESYREL) 150 mg tablet Take 1 tablet (150 mg total) by mouth nightly Active lamoTRIgine (LaMICtal) 100 mg tablet Take 1 tablet (100 mg total) by mouth daily Active DULoxetine DR (CYMBALTA) 30 mg capsule Take 1 capsule (30 mg total) by mouth daily Active atorvastatin (LIPITOR) 20 mg tablet Take 1 tablet (20 mg total) by mouth daily Active potassium chloride ER (potassium chloride ER) 10 mEq CR tablet Take 1 tablet/capsule (10 mEq total) by mouth daily Active triamcinolone (KENALOG) 0.1 % ointment Apply topically 2 (two) times a day Apply to areas of itching left leg prn, and to skin under compression wrap during wrap changes 80 g 1 3 Active cyclobenzaprine (FLEXERIL) 10 mg tablet [address] (VOLTAREN) 75 mg EC tablet Take 1 tablet (75 mg total) by mouth 2 (two) times a day Active buPROPion SR (WELLBUTRIN SR) 100 mg 12 hr tablet 3 Active albuterol HFA (PROVENTIL HFA,VENTOLIN HFA,PROAIR HFA) 90 mcg/actuation inhaler 3 Active atropine 1 % ophthalmic solution 1 drop Active clotrimazole 1 % cream 3 Active cyanocobalamin (Vitamin B-12) 1,000 mcg/mL injection Inject 1 mL (1,000 mcg total) into the muscle as instructed every 4 (four) weeks 9 Active ferrous sulfate 325 mg (65 mg of elemental iron) tablet Take 1 tablet (325 mg total) by mouth 2 (two) times a day 9 Active furosemide (LASIX) 40 mg tablet Take 1 tablet (40 mg total) by mouth daily 9 Active oxyCODONE (ROXICODONE) 5 mg immediate release tablet 3 Active PARoxetine (PAXIL) 10 mg tablet 3 Active pregabalin (LYRICA) 150 mg capsule 3 Active psyllium (METAMUCIL) 3.4 gram packet Take by mouth Acti ve Active Problems Problem Noted Date Diagnosed Date Lymphedema 03/07/2021 Assessment & Plan (03/07/2021 4:06 PM PATTERN MECHANIC): Patient with chronic lymphedema of the bilateral lower extremities. No evidence of underlying clinically significant arterial occlusive disease. Would advise to continue with ongoing dressing changes and patient needs appropriate 30-40 mm mercury compression therapy lower extremities with leg elevation exercise and weight loss. Mixed hyperlipidemia 03/07/2021 Assessment & Plan (03/07/2021 4:06 PM PATTERN MECHANIC): Hyperlipidemia chronic and controlled. Continue Lipitor. Immunizations Immunization Administration Dates Next Due Influenza, Quadrivalent, Spl it, Preservative Free, Intramuscular 12/18/2017 Surgical History Surgery Date Site/Laterality Comments PELVIC FRACTURE SURGERY HIP SURGERY HIP SURGERY Left left hip removed due to staff infection Medical History Medical History Date Comments Depression Hypertension Hyperlipemia Anemia Anxiety Arthritis Emphysema of lung Obesity Family History Medical History Relation Name Comments Diabetes Father Heart disease Father Hypertension Father Arthritis Mother Mental illness Mother Relation Name Status Comments Father Alive Mother Alive Social History Tobacco Use Types Packs/Day Years Used Date Smoking Tobacco: Every Day Smokeless Tobacco: Never Tobacco Cessation:Ready to Q uit: Not Asked; Counseling Given: Not Answered Personal Safety Answer Date Recorded Getting School Help Needed Not on file 01/22 Comments Unknown Sex and Gender Information Value Date Recorded Sex Assigned at Not on file Legal Sex Female 9:47 AM PATTERN MECHANIC Gender Identity Not on file Sexual Orientation Not on file Obstetrics History Last Filed Vital Signs Vital Sign Reading Time Taken Comments Blood Pressure 138/87 10/16/2022 12:55 PM CDT Pulse 94 10/16/2022 12:55 PM CDT Temperature 36.6 C (97.8 F) 06/02/2018 4:50 PM CDT Respiratory Rate 20 06/02/2018 4:50 PM CDT Oxygen Saturation 93% 10/16/2022 12:55 PM CDT Inhaled Oxygen Concentration - - Weight 136.1 kg (300 lb) 10/16/2022 12:55 PM CDT Height 167.6 cm (5' 6) 10/16/2022 12:55 PM CDT Body Mass Index 48.42 10/16/2022 12:55 PM CDT Plan of Treatment Health Maintenance Due Date Last Done Comments Breast Cancer Screening-Mammogram 1971 Cervical Cancer Screening 1971 Colon Cancer Screening-Colonoscopy 1971 Depression Screening 1971 Hepatitis C Screening 1971 Hepatitis B Screening 05/16/1989 Regular Well Visit/Exam 18-64 05/16/1989 Pneumococcal vaccine <65 (1 of 2 - PCV) 05/16/1990 Zoster Vaccine (1 of 2) 05/16/2021 Covid-19 Vaccine (4 - 2024-2 6 season) 2024 01/19/2021, 05/25/2020, 04/27/2020 Influenza Vaccine (#1) 2024 8, 11/09/2016, 12/04/2013, Additional history exists DTaP/Tdap/Td Vaccine (2 - Td or Tdap) 10/19/2026 10/19/2016, 10/03/2010 Additional Health Concerns Infection Onset Date Last 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
--- OUTSIDE RECORDS SUMMARY | 2024-10-16 13:34 | XMS_ITS | Clinical Summary ---
Author Organization [facility] Address [address] [place] [address] Phone Care Team Providers Care Demand Generator Manager Name Role Phone Rony Lyon MD Primary Care Provider [phone] Allergies No known active allergies Medications ARIPiprazole [...] on file Legal Sex Female 11:33 AM STAMP MOUNTER Gender Identity Not on file Sexual Orientation [...] 05/16/2021 Zoster Immunization (1 of 2) 05/16/2021 Influenza Immunization (#1) 2024 11/0 08/2017, 11/09/2016, 12/04/2013, Additional history exists SARS-COV-2 Immunization (2024- season) 2024 01/19/2021, 05/25/2020, 04/27/2020 Respiratory Syncytial Virus (RSV) Immunization (Adult) (1 [...] age to complete this topic Insurance MEDICAID [facility] [employer] Advance Directives Documents on File Type Date Recorded Patient Capacity Planning Manager Expl anation Power of Aerial Erector for Health Care 05/01/2018 10:13 AM POA Health care Care Teams Demand Generator Manager Relationship Specialty Start Date End Date Rony Lyon MD [address] [place] [address] PCP - General Internal Medicine 04/01/18
--- OUTSIDE RECORDS SUMMARY | 2024-10-16 13:34 | XMS_ITS | Patient Health Record ---
Author Organization [facility] Address [address] [place] [address] Care Team Providers Care Vmware Architect Name Role Phone OCTAVIA SIMMONS Unavailable [phone] Allergies Allergen (clinical drug ingredient) Drug/Non Drug [...] Problem Status W/U Status Risk Notes Problem Peripheral vascular disease (484430212) Other specified peripheral vascular diseases (I73.89) Active confirmed Problem Ulcer of right foot (disorder) (552794484) Ulcer of right foot, limited to breakdown of skin (L97.511) Active confirmed Vital Signs Heart Rate 85 /min 08/21/2024 Height-cm 167.64 cm 08/21/2024 Blood pressure diastolic 88 mm Hg 08/21/2024 Weight-kg 136.08 kg 08/21/2024 Height 66 in 08/21/2024 Blood pressure systolic 139 mm Hg 08/21/2024 Weight 300 lbs 08/21/2024 BMI 48.42 kg/m2 08/21/2024 Encounters Encounter Location Date Provider Diagnosis [facility] [address] [place] [address] 08/21/2024 OCTAVIA SIMMONS Tinea unguium B35.1 ; [...] the nail by use of a sharp gate cutter and/or rotary instrument. Reason for debridement [...] Details Provider Name:OCTAVIA STANTON, 11/09/2024 01:00:00 PM, [address] [place], [address], Insurance Providers Payer Name Payer Address Payer Phone Subscriber Number Group Number Insured Name Patient Relationship to Insured Coverage Start Date Coverage End Date [facility] [address] [place] [id number] DAVID MUNSON Self - patient is the insured Medical (General) History Medical History History ICD Code Thyroid disease COPD Depression / anxiety Left drop foot Surgical History Surgery Date(Month/Year) Four surgeries on hip 1998
--- OUTSIDE RECORDS SUMMARY | 2024-10-16 13:34 | XMS_ITS | Clinical Summary ---
Author Organization [facility] Address [address] [place] [address] Care Team Providers Care Lead Quality Control Technician Name Role Phone Malik Mcdowell MD Unavailable [phone] Patricia Farah NP Primary Care Provider [phone] Allergies Active Allergy Reactions Criticality Noted Date [...] back pain Hypothyroidism Hip ankylosis Bipolar disorder ([facility]) Acquired cavovarus deformity of foot Family History [...] Comments Blood Pressure 136/82 03/06/2019 12:43 PM WELLFIELD TECHNICIAN Pulse 82 03/06/2019 12:43 PM WELLFIELD TECHNICIAN Temperature 37.2 C (98.9 F) 03/06/2019 12:43 PM WELLFIELD TECHNICIAN Respiratory Rate 22 03/06/2019 12:43 PM WELLFIELD TECHNICIAN Oxygen Saturation 96% 03/06/2019 12:43 PM WELLFIELD TECHNICIAN Inhaled Oxygen Concentration - - Weight 127 [...] this topic Insurance [employer] Care Teams Lead Quality Control Technician Relationship Specialty Start Date End Date Patricia Farah NP [address] [address] PCP - General Nurse Practitioner Family 03/27/21 Malik Mcdowell MD [address] [place] [address] Moose Project Landscape Architect CARDIOVASCULAR DISEASE 04/30/16
[2024-10-16 13:35] VITALS: BP 130/76; PULSE 78; RESP 16; TEMP 36.4; O2SAT 98
--- OUTSIDE RECORDS SUMMARY | 2024-10-16 13:35 | XMS_ITS | Encounter Summary ---
Author Organization [facility] Address [address] [place] [address] Care Team Providers Care Airbrush Artist Name Role Phone Rony Lyon MD Primary Care Provider Malik Mcdowell MD Unavailable Patricia Farah NP Primary Care Provider [phone] Encounter Details Date Type Department Care Team (Late st Contact Info) Description 04/27/2016 Abstract [facility] [address] [place] [address] Malik Mcdowell MD [address] [place] [address] Social History Tobacco Use Types [...] on filedocumented in this encounter Care Teams Airbrush Artist Relationship Specialty Start Date End Date Rony Lyon MD [address] [place] [address] PCP - General INTERNAL MEDICINE 03/20/16 02/05/19 Patircia Farah NP [address] [phone] PCP - General Nurse Practitioner Family 03/27/21 Malik Mcdowell MD [address] [place] [address] Holden Occupational Therapy Supervisor CARDIOVASCULAR DISEASE 04/30/16 documented as of this encounter
--- OUTSIDE RECORDS SUMMARY | 2024-10-16 13:35 | XMS_ITS | Clinical Summary ---
Author Organization [facility] Address [address] [place] [address], [place] [address] Care Team Providers Care Golf Superintendent Name Role Phone Patricia Farah IMPORT MANAGER-C Primary Care Provider Unav ailable Allergies No known active allergies Medications ARIPiprazole (ABILIFY) 10 MG tablet Take 10 mg by mouth every night Active atenolol (TENORMIN) 25 MG tablet Take 25 mg by mouth 1 (one) time each day Active atorvastatin (LIPITOR) 20 MG tablet Take 20 mg by mouth 1 (one) time each day Active atropine 1 % ophthalmic solution 1 drop Active sulfamethoxazol e-trimethoprim 800-160 MG per tablet Take 1 tablet by mouth every 12 (twelve) hours Active DULoxetine (CYMBALTA) [address] capsule Take 30 mg by mouth 2 (two) times a day Do not crush or chew. Active diclofenac (VOLTAREN) 75 MG EC tablet Take 75 mg by mouth 2 (two) times a day Do not crush, chew, or split. Active ferrous sulfate 325 (65 Fe) MG EC tablet Take 325 mg by mouth 1 (one) time each day Do not crush, chew, or split. Active fluticasone (FLONASE) 50 MCG/ACT nasal spray Administer 1 spray into each nostril 2 (two) times a day Active gabapentin (NEURONTIN) 300 MG capsule Take 300 mg by mouth 3 (three) times a day Active lamoTRIgine (LaMICtal) 200 MG tablet Take 200 mg by mouth every night Active levothyroxine (SYNTHROID, LEVOTHROID) 50 MCG tablet Take 50 mcg by mouth 1 (one) time each day Active psyllium (METAMUCIL) 58.6 % powder Take by mouth PRN Active potassium chloride 10 MEQ CR tablet Take 20 mEq by mouth 3 (three) times a day with meals Do not crush, chew, or split. Active traZODone (DESYREL) 150 MG tablet Take 150 mg by mouth every night Active triamcinolone (KENALOG) 0.1 % cream Apply topically 2 (two) times a day Apply by topical route 2 times every day a thin layer to the affected area(s). Active cetirizine (ZyrTEC) 10 MG tablet Take 10 mg by mouth 1 (one) time each day Active Family History Medical History Relation Comments Heart disease Father Dementia Maternal Grandmother Diabetes Maternal Grandmother Relation Status Comments Father Alive Maternal Grandmother Mother Alive Social History Tobacco Use Types Packs/Day Years Used Date Smoking Tobacco: Every Day Cigarettes Comments:Heavy Smoker 20-39 Cigarettes per day Alcohol Use Standard Drinks/Week Comments Yes 0 (1 standard drink = 0.6 oz pur e alcohol) Comments Unknown Sex and Gender Information Value Date Recorded Sex Assigned at Not on file Legal Sex Female 3:41 PM EDT Gender Identity Not on file Sexual Orientation Not on file Plan of Treatment Health Maintenance Due Date Last Done Comments Breast Cancer Screening 1971 Hepatitis B Vaccine (1 of 3 - 19+ 3-dose series) 05/16 Pneumococcal Vaccine: 50+ Years (1 of 2 - PCV) 991 Colorectal Cancer Screening: Annual FOBT 05/16/2020 Colorectal Cancer Screening: Colonoscopy 05/16/2020 Colorectal Cancer Screening: Sigmoidoscopy 05/16/2020 Influenza Vaccine (#1) 2024 Care Teams Golf Superintendent Relationship Specialty Start Date End Date Patricia Farah FNP-C [address] [id number] PCP - General Nurse Practitioner 12/13/20
[2024-10-16] MEDS: IRON SUCROSE COMPLEX 100 MG in SODIUM CHLORIDE 0.9% IV 95 ML 200 MG IVPB (13:39)
[2024-10-16 14:19] VITALS: BP 129/76; PULSE 78
--- NOTE | 2024-10-16 14:27 | PC.NURSE ---
Tolerated #2 of 3 Venofer infusions well. SEE MAR/patient care notes.
== END 2024-10-16 13:21 | disposition home or self-care (01) ==
PROVIDERS: PCP Family Medicine; Visit Provider Family Medicine
DX: D50.9 Iron deficiency anemia, unspecified (principal)
CPT/HCPCS: 96365; J1756

== ENCOUNTER 2024-10-22 12:58 | Outpatient (CLI) | payer OTHER, SELFPAY ==
--- OUTSIDE RECORDS SUMMARY | 2023-12-20 09:15 | XMS_ITS ---
Author Organization [facility] Address [address] [place] [address] Care Team Providers Care Shoe Clerk Name Role Phone OCTAVIA SIMMONS Unavailable [phone] Encounters Encounter Location Date Provider Diagnosis [facility] [id number] [place] [address] 12/20/2023 OCTAVIA SIMMONS Plan Of Treatment Next Appt Details Provider Name:OCTAVIA STANTON, 11/09/2024 01:00:00 PM, [place], [address], Progress Notes * DAVID MUNSON ADOB:1970 (54 yo F)Acc No.[id number]:12/20/2023 Patient: DAVID VALENTIN Provider: Terence Simmons DPM :1970 A ge:53 Y S ex:Female Date:12/20/2023 Address: [address], [facility] Subjective: * Chief Complaints: * * Medical History: Objective: * Vitals: Assessment: Plan: * Treatment: * Billing Information: * Visit Code: * Procedure Codes: * Electronic signature of CARLYN SIMMONS DPM on 10/22/2024 at 02:44 PM CDT Sign off status: Pending * Provider: Terence Simmons DPM Date: 1 02/18/2023 Generated for Printi ng/Faxing/eTransmitting on: 0 10/22/2024 02:44 PM CDT
[2024-10-22 13:10] VITALS: BP 128/70; PULSE 80; RESP 14; TEMP 36.6; O2SAT 96; BMI 46.7
[2024-10-22] MEDS: IRON SUCROSE COMPLEX 100 MG in SODIUM CHLORIDE 0.9% IV 100 ML 200 MG IVPB (13:25)
--- OUTSIDE RECORDS SUMMARY | 2024-10-22 14:45 | XMS_ITS | Clinical Summary ---
Author Organization [facility] Address [address] [place] [address] Care Team Providers Care Card Game Operator Name Role Phone Carlo Godoyrish Primary [...] 03/07/2021 Assessment & Plan (03/07/2021 4:[address] CLERK): Patient with chronic lymphedema of the bilateral lower extremities. No evidence of underlying clinically significant arterial occlusive disease. Would advise to continue with ongoing dressing changes and patient needs appropriate 30-40 mm mercury compression therapy lower extremities with leg elevation exercise and weight loss. Mixed hyperlipidemia 03/07/2021 Assessment & Plan (03/07/2021 4:[address] CLERK): Hyperlipidemia chronic and controlled. Continue Lipitor. 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
--- OUTSIDE RECORDS SUMMARY | 2024-10-22 14:45 | XMS_ITS | Clinical Summary ---
Author Organization [facility] Address [address] [place] [address] Phone Care Team Providers Care Trimmer Helper Name Role Phone Rony Lyon MD Primary Care Provider [phone] Allergies No known active allergies Medications ARIPiprazole [...] on file Legal Sex Female 11:33 AM STERILE PROCESS TECH Gender Identity Not on file Sexual Orientation [...] age to complete this topic Insurance MEDICAID [facility] [employer] Advance Directives Documents on File Type Date Recorded Patient Felt Checker Expl anation Power of Farm Equipment Engineer for Health Care 05/01/2018 10:13 AM POA Health care Care Teams Trimmer Helper Relationship Specialty Start Date End Date Rony Lyon MD [address] [place] [address] PCP - General Internal Medicine 04/01/18
--- OUTSIDE RECORDS SUMMARY | 2024-10-22 14:45 | XMS_ITS | Patient Health Record ---
Author Organization [facility] Address [address] [place] [address] Care Team Providers Care Change Control Manager Name Role Phone OCTAVIA SIMMONS Unavailable [phone] Allergies Allergen (clinical drug ingredient) Drug/Non Drug [...] Status Risk Notes Problem Peripheral vascular disease (628213690) Other specified peripheral vascular diseases (I73.89) Active confirmed Problem Ulcer of right foot (disorder) (826184472) Ulcer of right foot, limited to breakdown of skin (L97.511) Active confirmed Vital Signs Heart Rate 85 /min 08/21/2024 Height-cm 167.64 cm 08/21/2024 Blood pressure diastolic 88 mm Hg 08/21/2024 Weight-kg 136.08 kg 08/21/2024 Height 66 in 08/21/2024 Blood pressure systolic 139 mm Hg 08/21/2024 Weight 300 lbs 08/21/2024 BMI 48.42 kg/m2 08/21/2024 Encounters Encounter Location Date Provider Diagnosis [facility] [address] [place] [address] 08/21/2024 OCTAVIA SIMMONS Tinea unguium B35.1 ; [...] the nail by use of a sharp hand i thermal cutter and/or rotary instrument. Reason for debridement [...] Details Provider Name:OCTAVIA STANTON, 11/09/2024 01:00:00 PM, [address] [place], [address], Insurance Providers Payer Name Payer Address Payer Phone Subscriber Number Group Number Insured Name Patient Relationship to Insured Coverage Start Date Coverage End Date [facility] [address] [place] [address] [phone] [id number] DAVID MNUSON Self - patient is the insured Medical (General) History Medical History History ICD Code Thyroid disease COPD Depression / anxiety Left drop foot Surgical History Surgery Date(Month/Year) Four surgeries on hip 1998
== END 2024-10-22 12:59 | disposition home or self-care (01) ==
PROVIDERS: PCP Family Medicine; Visit Provider Family Medicine
DX: D50.9 Iron deficiency anemia, unspecified (principal)
CPT/HCPCS: 96365; J1756

== ENCOUNTER 2024-12-24 10:07 | Outpatient (CLI) | payer OTHER, SELFPAY ==
[2024-12-24 10:25] LABS: Hematocrit 36.9 % (35.0-49.0); Hemoglobin 10.9 g/dL (12.0-15.0); Immature Granulocyte Percent A 0.3 % (0.0-0.0); Lymphocytes Absolute Auto 2.62 K/mm3 (1.10-4.50); Mean Corpuscular HGB Conc 29.5 g/dL (32-36); Mean Corpuscular Hemoglobin 22.4 pg (27.0-31.0); Mean Corpuscular Volume 75.8 fL (78.0-102.0); Nucleated Red Blood Cells Absolute Auto 0.00 K/mm3 (0.00-0.00); Nucleated Red Blood Cells Perc 0.0 % (0-0.0); Platelet Count Result 280 K/mm3 (150-420); Red Blood Count 4.87 M/mm3 (4.20-5.40); White Blood Count 11.3 K/mm3 (4.8-10.8)
[2024-12-24 10:42] LABS: Iron 42 ug/dL (37-170)
[2024-12-24 10:43] LABS: Alanine Aminotransferase 19 U/L (6-35); Albumin Level 4.3 g/dL (3.5-5.1); Alkaline Phosphatase 130 U/L (38-126); Anion Gap 11 mmol/L (4-12); Aspartate Amino Transferase 19 U/L (14-36); Blood Urea Nitrogen 21 mg/dL (7-17); Calcium 8.9 mg/dL (8.4-10.2); Carbon Dioxide 28 mmol/L (22-30); Chloride 105 mmol/L (98-107); Estimated Glomerular Filt Rate > 60; Glucose 115 mg/dL (65-110); Osmolality Calculated 302 mOsm/kg (285-295); Potassium 4.0 mmol/L (3.4-5.0); Sodium 144 mmol/L (137-145); Total Protein 7.2 g/dL (6.3-8.2)
[2024-12-24 10:51] LABS: Percent Iron Saturation 13 % (20-50)
--- OUTSIDE RECORDS SUMMARY | 2024-12-24 10:58 | XMS_ITS | Clinical Summary ---
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
--- OUTSIDE RECORDS SUMMARY | 2024-12-24 10:58 | XMS_ITS | Clinical Summary ---
Author Organization [facility] Facility Address [address] [place] [address], [place] [address] Care Team Providers Care Anthropology Instructor Name Role Phone Patricia Farah SCALP TREATMENT OPERATOR-C Primary Care Provider Unav ailable Allergies No [...] 05/16/2020 Influenza Vaccine (#1) 2024 Care Teams Anthropology Instructor Relationship Specialty Start Date End Date Patricia Farah FNP-C [address] [id number] PCP - General Nurse Practitioner 12/13/20
--- OUTSIDE RECORDS SUMMARY | 2024-12-24 10:58 | XMS_ITS | Clinical Summary ---
Author Organization [facility] Address [address] [place] [address] Care Team Providers Care Mud Logger Name Role Phone Carlo Godoyrish Primary Care [...] 03/07/2021 Assessment & Plan (03/07/2021 4:06 PM WATERPROOFING SUPERVISOR): Patient with chronic lymphedema of the bilateral lower extremities. No evidence of underlying clinically significant arterial occlusive disease. Would advise to continue with ongoing dressing changes and patient needs appropriate 30-40 mm mercury compression therapy lower extremities with leg elevation exercise and weight loss. Mixed hyperlipidemia 03/07/2021 Assessment & Plan (03/07/2021 4:06 PM WATERPROOFING SUPERVISOR): Hyperlipidemia chronic and controlled. Continue Lipitor. 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
[2024-12-24 11:13] LABS: Thyroid Stimulating Hormone Reflex 1.730 uIU/mL (0.465-4.68)
[2024-12-24 11:18] LABS: Ferritin 14.20 ng/mL (11.1-264)
[2024-12-29 13:35] LABS: Bilirubin,Total 0.4 mg/dL (0.2-1.3)
== END 2024-12-24 10:08 | disposition home or self-care (01) ==
PROVIDERS: PCP Family Medicine; Visit Provider Family Medicine
DX: D50.9 Iron deficiency anemia, unspecified (principal); E03.9 Hypothyroidism, unspecified; D64.9 Anemia, unspecified
CPT/HCPCS: 36415; 80053; 82728; 83540; 83550; 84443; 85025